=== PATIENT | female | born 1955 | race Caucasian/White ===

== ENCOUNTER 2021-10-16 08:35 | Inpatient (IN) | payer OTHER, MEDICAID ==
[~2021-10-16] VITALS: Ht 167.6 cm; Wt 53.5 kg
[2021-10-16 08:40] VITALS: BP_SYST 103
[2021-10-16] MEDS ORDERED: ALBUTEROL SULFATE 0.083% 2.5 MG/3 ML VIAL.NEB INH ONE ×2 (08:49→09:00)
[2021-10-16] MEDS ORDERED: IPRATROPIUM/ALBUTEROL SULFATE 3 ML AMPUL.NEB (DUONEB) ONE (08:52)
[2021-10-16] MEDS ORDERED: IPRATROPIUM BROM 0.5 MG/2.5 ML VIAL.NEB (ATROVENT) INH ONE (09:00)
[2021-10-16 09:16] LABS: BASOPHILS # (AUTO) 0.1 K/uL (0.0-0.2); BASOPHILS % (AUTO) 0.5 % (0.0-2.0); EOSINOPHILS % (AUTO) 0.1 % (0.0-4.0); HEMATOCRIT 28.2 % (36-48); HEMOGLOBIN 9.5 g/dL (12.0-16.0); LYMPHOCYTES % (AUTO) 6.4 % (20.5-51.5); MEAN CORPUSCULAR HEMOGLOBIN 29 pg (27-31); MEAN CORPUSCULAR HGB CONC 34 % (32-36); MEAN CORPUSCULAR VOLUME 87 fL (79.0-98.0); MONOCYTES # (AUTO) 2.2 K/uL (0.0-1.0); MONOCYTES % (AUTO) 13.7 % (1.7-9.3); NEUTROPHILS # (AUTO) 12.9 K/uL (1.8-7.7); PLATELET COUNT (AUTO) 443 K/uL (130-430); RED BLOOD CELL COUNT(AUTO) 3.26 MIL/uL (4.2-6.2); RED CELL DISTRIBUTION WIDTH 15.7 % (9.0-15.0); WHITE BLOOD COUNT (AUTO) 16.3 K/uL (4.8-10.8)
[2021-10-16 09:33] LABS: ANION GAP 12 (5-15); CALCIUM 8.1 mg/dL (8.4-11.0); CHLORIDE 94 mmol/L (98-107); CREATININE 1.54 mg/dL (0.55-1.30); GLUCOSE 258 mg/dL (70-99); POTASSIUM 5.2 mmol/L (3.5-5.1); SODIUM SERUM 129 mmol/L (136-145); UREA NITROGEN, BLOOD 60 mg/dL (8-21)
[2021-10-16 09:42] LABS: ALANINE AMINOTRANSFERASE 84 U/L (12-78); ALBUMIN 1.9 g/dL (3.4-4.8); ASPARTATE AMINOTRANSFERASE 72 U/L (10-37); TOTAL BILIRUBIN 0.7 mg/dL (0.0-1.0)
[2021-10-16 09:43] LABS: GFR AFRICAN AMERICAN 44 mL/min (>90)
[2021-10-16 09:52] LABS: NEUTROPHILS % (AUTO) 79.3 % (40.0-70.0)
[2021-10-16] MEDS ORDERED: NACL 0.9% 2,000 ML IV ONE (10:30)
[2021-10-16] MEDS ORDERED: METHYLPREDNISOLONE SOD SUCC 40 MG/ML VIAL IVP ONE (13:30)
[2021-10-16] MEDS ORDERED: METF-518 PO (14:10)
[2021-10-16] MEDS ORDERED: LISI-209 PO (14:10)
[2021-10-16] MEDS ORDERED: LEVO112T2 PO (14:10)
[2021-10-16] MEDS ORDERED: MULT-1089 PO (14:10)
[2021-10-16] MEDS ORDERED: QUET300T2 PO (14:10)
[2021-10-16] MEDS ORDERED: LIP10 PO (14:10)
[2021-10-16] MEDS ORDERED: AMLO5TAB4 PO (14:10)
[2021-10-16] MEDS ORDERED: LACT10SO6 PO (14:10)
[2021-10-16] MEDS ORDERED: DEPS125 PO (14:10)
[2021-10-16] MEDS ORDERED: XALEYE OP (14:10)
[2021-10-16] MEDS ORDERED: PIPERACILLIN/TAZO 3.375/DEX-IS 50 ML IV ONE (14:15)
[2021-10-16] MEDS: NACL 0.9% 1,000 ML IV SCH (14:56)
[2021-10-16 15:00] VITALS: BP_SYST 97
[2021-10-16 15:30] VITALS: BP_SYST 97
[2021-10-16] MEDS: LevALBUTEROL HCL 1.25 MG/0.5 ML *CONC.* VIAL.NEB (XOPENEX CONC.) INH SCH ×3 (15:49→23:40)
[2021-10-16 16:00] VITALS: BP_SYST 103
[2021-10-16] MEDS: LACTULOSE 20 GM/30 ML UDC PO SCH ×2 (16:18→20:42)
[2021-10-16 16:55] VITALS: BP_SYST 103
[2021-10-16] MEDS: METHYLPREDNISOLONE SOD SUCC 40 MG/ML VIAL IVP SCH (18:03)
[2021-10-16 20:00] VITALS: BP_SYST 105
[2021-10-16] MEDS: QUEtiapine FUMARATE 100 MG TABLET PO SCH (20:18)
[2021-10-16] MEDS: METOPROLOL TARTRATE 25 MG TABLET PO SCH (20:24)
[2021-10-16] MEDS: DIVALPROEX SODIUM 250 MG TABLET(DEPAKOTE) PO SCH (20:29)
[2021-10-16] MEDS: ATORVASTATIN 10 MG TABLET PO SCH (20:29)
[2021-10-16] MEDS: ENOXAPARIN SODIUM 30 MG/0.3 ML SYRINGE SUBCUT SCH (20:30)
[2021-10-16] MEDS: INSULIN REGULAR, HUMAN 100 UNITS/ML, 10 ML VIAL (humuLIN R) SUBCUT PRN (20:31)
[2021-10-16] MEDS: LATANOPROST 2.5 ML DROPS (XALATAN) OP SCH (20:43)
[2021-10-16] MEDS: PIPERACILLIN/TAZO 3.375/DEX-IS 50 ML IV SCH (21:00)
[2021-10-16] MEDS: AMIODARONE HCL 200 MG TABLET PO SCH (21:11)
[2021-10-17] MEDS: METHYLPREDNISOLONE SOD SUCC 40 MG/ML VIAL IVP SCH ×5 (00:09→23:43)
[2021-10-17 00:37] VITALS: BP_SYST 156
[2021-10-17] MEDS: PIPERACILLIN/TAZO 3.375/DEX-IS 50 ML IV SCH ×4 (02:57→21:11)
[2021-10-17] MEDS: NACL 0.9% 1,000 ML IV SCH ×2 (02:57→17:12)
[2021-10-17] MEDS: LevALBUTEROL HCL 1.25 MG/0.5 ML *CONC.* VIAL.NEB (XOPENEX CONC.) INH SCH ×4 (03:35→20:40)
[2021-10-17] MEDS: INSULIN REGULAR, HUMAN 100 UNITS/ML, 10 ML VIAL (humuLIN R) SUBCUT PRN ×3 (05:54→21:22)
[2021-10-17] MEDS: LEVOTHYROXINE SODIUM 0.112 MG TABLET PO SCH (06:11)
[2021-10-17 06:52] LABS: BASOPHILS % (AUTO) 0.1 % (0.0-2.0); HEMATOCRIT 25.7 % (36-48); HEMOGLOBIN 8.6 g/dL (12.0-16.0); LYMPHOCYTES # (AUTO) 0.9 K/uL (1.0-5.5); LYMPHOCYTES % (AUTO) 7.5 % (20.5-51.5); MEAN CORPUSCULAR HEMOGLOBIN 29 pg (27-31); MEAN CORPUSCULAR HGB CONC 34 % (32-36); MEAN CORPUSCULAR VOLUME 86 fL (79.0-98.0); MONOCYTES # (AUTO) 0.7 K/uL (0.0-1.0); NEUTROPHILS # (AUTO) 10.3 K/uL (1.8-7.7); NEUTROPHILS % (AUTO) 86.4 % (40.0-70.0); PLATELET COUNT (AUTO) 358 K/uL (130-430); RED BLOOD CELL COUNT(AUTO) 2.98 MIL/uL (4.2-6.2); RED CELL DISTRIBUTION WIDTH 15.3 % (9.0-15.0); WHITE BLOOD COUNT (AUTO) 11.9 K/uL (4.8-10.8)
[2021-10-17 07:40] LABS: CALCIUM 7.5 mg/dL (8.4-11.0); CREATININE 1.11 mg/dL (0.55-1.30); POTASSIUM 4.2 mmol/L (3.5-5.1)
[2021-10-17 08:00] VITALS: BP_SYST 100
[2021-10-17 08:20] LABS: TOTAL IRON BIND. CAPACITY 170 ug/dL (250-450)
[2021-10-17] MEDS: AMIODARONE HCL 200 MG TABLET PO SCH ×2 (08:32→21:02)
[2021-10-17] MEDS: LACTULOSE 20 GM/30 ML UDC PO SCH ×3 (08:32→22:13)
[2021-10-17] MEDS: DIVALPROEX SODIUM 250 MG TABLET(DEPAKOTE) PO SCH ×2 (08:32→21:11)
[2021-10-17] MEDS: METOPROLOL TARTRATE 25 MG TABLET PO SCH ×2 (08:33→21:11)
[2021-10-17] MEDS: MULTIVITAMINS TAB 1 TABLET PO SCH (08:33)
[2021-10-17 10:31] LABS: FREE T4 (FREE THYROXINE) 0.8 ng/dl (0.8-1.5); THYROID STIMULATING HORMONE 0.64 uIu/mL (0.36-3.74)
[2021-10-17 11:53] VITALS: BP_SYST 117
[2021-10-17] MEDS ORDERED: AMIODARONE HCL 200 MG TABLET PO ONE (13:30)
[2021-10-17] MEDS: SOD FERRIC GLUC COMPLEX/SUC 125 MG in NS 100 ML IV SCH (14:00)
[2021-10-17] MEDS ORDERED: ALPRAZolam 0.25 MG TABLET PO PRN (14:00)
[2021-10-17 15:00] VITALS: BP_SYST 91
[2021-10-17 20:00] VITALS: BP_SYST 106
[2021-10-17] MEDS: ATORVASTATIN 10 MG TABLET PO SCH (21:11)
[2021-10-17] MEDS: QUEtiapine FUMARATE 100 MG TABLET PO SCH (21:12)
[2021-10-17] MEDS: ENOXAPARIN SODIUM 30 MG/0.3 ML SYRINGE SUBCUT SCH (21:12)
[2021-10-17] MEDS: LATANOPROST 2.5 ML DROPS (XALATAN) OP SCH (21:22)
[2021-10-18] VITALS (14 sets, daily range): BP systolic 53–187
[2021-10-18] MEDS: LevALBUTEROL HCL 1.25 MG/0.5 ML *CONC.* VIAL.NEB (XOPENEX CONC.) INH SCH ×6 (00:25→23:26)
[2021-10-18] MEDS: NACL 0.9% 1,000 ML IV SCH ×2 (02:28→19:20)
[2021-10-18] MEDS: PIPERACILLIN/TAZO 3.375/DEX-IS 50 ML IV SCH ×4 (03:16→21:00)
[2021-10-18] MEDS: METHYLPREDNISOLONE SOD SUCC 40 MG/ML VIAL IVP SCH ×3 (05:20→17:33)
[2021-10-18] MEDS: INSULIN REGULAR, HUMAN 100 UNITS/ML, 10 ML VIAL (humuLIN R) SUBCUT PRN (05:50)
[2021-10-18] MEDS: LEVOTHYROXINE SODIUM 0.112 MG TABLET PO SCH (06:00)
[2021-10-18 07:07] LABS: FOLATE (FOLIC ACID) 12.1 ng/mL (>3.0)
[2021-10-18 07:57] LABS: BASOPHILS % (AUTO) 0.2 % (0.0-2.0); HEMATOCRIT 26.8 % (36-48); HEMOGLOBIN 8.9 g/dL (12.0-16.0); LYMPHOCYTES # (AUTO) 0.9 K/uL (1.0-5.5); MEAN CORPUSCULAR HEMOGLOBIN 29 pg (27-31); MEAN CORPUSCULAR HGB CONC 33 % (32-36); MEAN CORPUSCULAR VOLUME 87 fL (79.0-98.0); MONOCYTES # (AUTO) 0.9 K/uL (0.0-1.0); MONOCYTES % (AUTO) 6.3 % (1.7-9.3); NEUTROPHILS % (AUTO) 87.5 % (40.0-70.0); PLATELET COUNT (AUTO) 414 K/uL (130-430); RED BLOOD CELL COUNT(AUTO) 3.08 MIL/uL (4.2-6.2); RED CELL DISTRIBUTION WIDTH 15.5 % (9.0-15.0); WHITE BLOOD COUNT (AUTO) 14.9 K/uL (4.8-10.8)
[2021-10-18 08:02] LABS: CALCIUM 7.6 mg/dL (8.4-11.0); CREATININE 1.32 mg/dL (0.55-1.30); POTASSIUM 4.3 mmol/L (3.5-5.1)
[2021-10-18 08:24] LABS: ALBUMIN 1.7 g/dL (3.4-4.8); THYROID STIMULATING HORMONE 1.01 uIu/mL (0.36-3.74); TOTAL BILIRUBIN 0.3 mg/dL (0.0-1.0)
[2021-10-18] MEDS ORDERED: FUROSEMIDE 40 MG/4 ML VIAL IVP ONE (09:00)
[2021-10-18] MEDS: METOPROLOL TARTRATE 25 MG TABLET PO SCH ×2 (09:14→21:00)
[2021-10-18] MEDS: MULTIVITAMINS TAB 1 TABLET PO SCH (09:14)
[2021-10-18] MEDS: LACTULOSE 20 GM/30 ML UDC PO SCH ×3 (09:15→21:00)
[2021-10-18] MEDS: DIVALPROEX SODIUM 250 MG TABLET(DEPAKOTE) PO SCH ×2 (09:15→21:00)
[2021-10-18] MEDS: AMIODARONE HCL 200 MG TABLET PO SCH ×2 (09:15→21:00)
[2021-10-18] MEDS: SOD FERRIC GLUC COMPLEX/SUC 125 MG in NS 100 ML IV SCH (14:00)
[2021-10-18] MEDS ORDERED: NOREPINEPHRINE 4 MG/4 ML VIAL IV ONE ×2 (14:29→18:31)
[2021-10-18] MEDS ORDERED: DEXTROSE 50% JECT 50 ML DISP.SYRIN ONE (16:30)
[2021-10-18] MEDS ORDERED: DEXMEDETOMIDINE HCL 400 MCG in NS 96 ML IV PRN ×2 (16:45→17:15)
[2021-10-18] MEDS: ENOXAPARIN SODIUM 30 MG/0.3 ML SYRINGE SUBCUT SCH (21:00)
[2021-10-18] MEDS ORDERED: ALBUMIN HUMAN 25% 100 ML IV ONE ×2 (21:00→22:15)
[2021-10-18] MEDS: QUEtiapine FUMARATE 100 MG TABLET PO SCH (21:00)
[2021-10-18] MEDS: LATANOPROST 2.5 ML DROPS (XALATAN) OP SCH (21:00)
[2021-10-18] MEDS: FUROSEMIDE 100 MG in D5W 90 ML IV SCH (21:00)
[2021-10-18] MEDS: D5/0.45 NS 1,000 ML IV SCH (21:00)
[2021-10-18] MEDS ORDERED: AMIODARONE HCL 150 MG in D5W 100 ML IV ONE (21:00)
[2021-10-18] MEDS: ATORVASTATIN 10 MG TABLET PO SCH (21:00)
[2021-10-18] MEDS ORDERED: AMIODARONE HCL 450 MG/9 ML VIAL IV ONE (21:06)
[2021-10-18] MEDS ORDERED: AMIODARONE HCL IV ONE (21:45)
[2021-10-18] MEDS ORDERED: D5W IV ONE (21:45)
[2021-10-18] MEDS ORDERED: SODIUM BICARBONATE 8.4% JECT 50 MEQ/50 ML SYRINGE IVP ONE (23:45)
[2021-10-19] VITALS (28 sets, daily range): BP systolic 89–166
[2021-10-19] MEDS ORDERED: AMIODARONE HCL 450 MG/9 ML VIAL IV ONE (00:26)
[2021-10-19] MEDS ORDERED: ALBUMIN HUMAN 25% 100 ML IV ONE (02:26)
[2021-10-19] MEDS: PIPERACILLIN/TAZO 3.375/DEX-IS 50 ML IV SCH ×4 (03:00→21:55)
[2021-10-19] MEDS: LevALBUTEROL HCL 1.25 MG/0.5 ML *CONC.* VIAL.NEB (XOPENEX CONC.) INH SCH ×6 (03:00→22:48)
[2021-10-19] MEDS: NOREPINEPHRINE BITARTRATE 32 MG in NS 218 ML IV PRN (04:30)
[2021-10-19] MEDS: D5/0.45 NS 1,000 ML IV SCH ×2 (05:00→12:29)
[2021-10-19] MEDS: METHYLPREDNISOLONE SOD SUCC 40 MG/ML VIAL IVP SCH ×3 (06:00→12:00)
[2021-10-19 06:25] LABS: CALCIUM 8.6 mg/dL (8.4-11.0); CREATININE 2.06 mg/dL (0.55-1.30)
[2021-10-19] MEDS: LEVOTHYROXINE SODIUM 0.112 MG TABLET PO SCH (07:00)
[2021-10-19 07:17] LABS: POTASSIUM 5.6 mmol/L (3.5-5.1)
[2021-10-19 07:33] LABS: HEMOGLOBIN 11.5 g/dL (12.0-16.0); MEAN CORPUSCULAR HEMOGLOBIN 29 pg (27-31); MEAN CORPUSCULAR HGB CONC 31 % (32-36); MEAN CORPUSCULAR VOLUME 92 fL (79.0-98.0); PLATELET COUNT (AUTO) 472 K/uL (130-430); RED BLOOD CELL COUNT(AUTO) 4.03 MIL/uL (4.2-6.2); RED CELL DISTRIBUTION WIDTH 16.8 % (9.0-15.0); WHITE BLOOD COUNT (AUTO) 25.1 K/uL (4.8-10.8)
[2021-10-19] MEDS ORDERED: DEXMEDETOMIDINE HCL 200 MCG/2 ML VIAL IV ONE (07:57)
[2021-10-19] MEDS: AMIODARONE HCL 450 MG in D5W 241 ML IV SCH (08:27)
[2021-10-19] MEDS: MULTIVITAMINS TAB 1 TABLET PO SCH (09:00)
[2021-10-19] MEDS: DIVALPROEX SODIUM 250 MG TABLET(DEPAKOTE) PO SCH ×2 (09:00→21:54)
[2021-10-19] MEDS: LACTULOSE 20 GM/30 ML UDC PO SCH ×3 (09:00→21:52)
[2021-10-19] MEDS ORDERED: SODIUM BICARBONATE 8.4% JECT 50 MEQ/50 ML SYRINGE ONE (09:00)
[2021-10-19] MEDS: METOPROLOL TARTRATE 25 MG TABLET PO SCH ×2 (09:00→21:53)
[2021-10-19] MEDS ORDERED: NOREPINEPHRINE 4 MG/4 ML VIAL IV ONE ×2 (09:12→09:35)
[2021-10-19] MEDS ORDERED: PROPOFOL DRIP 100 ML IV ONE (09:12)
[2021-10-19] MEDS: NACL 0.9% 1,000 ML IV SCH ×2 (10:00→22:00)
[2021-10-19] MEDS ORDERED: ETOMIDATE 20 MG/ 10 ML VIAL (AMIDATE) IVP ONE (10:15)
[2021-10-19] MEDS ORDERED: ETOMIDATE 20 MG/ 10 ML VIAL (AMIDATE) ONE (11:13)
[2021-10-19] MEDS ORDERED: ROCURONIUM BROMIDE 10 MG/ML (ZEMURON) ONE (11:13)
[2021-10-19 12:14] LABS: BAND % (MANUAL) 2 % (0-6)
[2021-10-19 12:15] LABS: ATYPICAL LYMPHOCYTES % 1 % (0-0); BASOPHILS % (MANUAL) 0 % (0-2); EOSINOPHILS % (MANUAL) 0 % (0-7); LYMPHOCYTES % (MANUAL) 7 % (20-46); METAMYELOCYTES % 1 % (0-0); MONOCYTES % (MANUAL) 14 % (0-11)
[2021-10-19] MEDS: SODIUM BICARBONATE 8.4% JECT 150 MEQ in D5W 1,000 ML IVP SCH ×2 (12:25→22:30)
[2021-10-19] MEDS ORDERED: NS 500 ML IV ONE (13:30)
[2021-10-19] MEDS: SOD FERRIC GLUC COMPLEX/SUC 125 MG in NS 100 ML IV SCH (14:00)
[2021-10-19] MEDS: AZITHROMYCIN 500 MG in NS 250 ML IV SCH (15:00)
[2021-10-19] MEDS: FUROSEMIDE 100 MG in D5W 90 ML IV SCH (17:25)
[2021-10-19] MEDS: INSULIN REGULAR, HUMAN 100 UNITS/ML, 10 ML VIAL (humuLIN R) SUBCUT PRN ×2 (17:26→21:52)
[2021-10-19] MEDS: ACETYLCYSTEINE 20% 4 ML VIAL (RT) INH SCH ×2 (19:39→22:48)
[2021-10-19] MEDS: LATANOPROST 2.5 ML DROPS (XALATAN) OP SCH (21:00)
[2021-10-19] MEDS ORDERED: PROPOFOL DRIP 100 ML IV PRN (21:45)
[2021-10-19] MEDS: ATORVASTATIN 10 MG TABLET PO SCH (21:54)
[2021-10-19] MEDS: QUEtiapine FUMARATE 100 MG TABLET PO SCH (21:54)
[2021-10-19] MEDS: ENOXAPARIN SODIUM 30 MG/0.3 ML SYRINGE SUBCUT SCH (21:57)
[2021-10-19] MEDS: PROPOFOL DRIP 100 ML IV PRN (22:11)
[2021-10-20] VITALS (31 sets, daily range): BP systolic 74–166
[2021-10-20] MEDS ORDERED: AMIODARONE HCL 450 MG/9 ML VIAL IV ONE (01:57)
[2021-10-20] MEDS: AMIODARONE HCL 450 MG in D5W 241 ML IV SCH (02:04)
[2021-10-20] MEDS: PROPOFOL DRIP 100 ML IV PRN (03:07)
[2021-10-20] MEDS: LevALBUTEROL HCL 1.25 MG/0.5 ML *CONC.* VIAL.NEB (XOPENEX CONC.) INH SCH ×6 (03:53→23:30)
[2021-10-20] MEDS: ACETYLCYSTEINE 20% 4 ML VIAL (RT) INH SCH ×6 (03:53→23:30)
[2021-10-20] MEDS: PIPERACILLIN/TAZO 3.375/DEX-IS 50 ML IV SCH ×4 (03:57→20:29)
[2021-10-20 05:53] LABS: BASOPHILS # (AUTO) 0.1 K/uL (0.0-0.2); BASOPHILS % (AUTO) 0.3 % (0.0-2.0); EOSINOPHILS # (AUTO) 0.4 K/uL (0.0-0.4); EOSINOPHILS % (AUTO) 1.5 % (0.0-4.0); HEMATOCRIT 36.5 % (36-48); HEMOGLOBIN 11.6 g/dL (12.0-16.0); LYMPHOCYTES # (AUTO) 1.9 K/uL (1.0-5.5); LYMPHOCYTES % (AUTO) 7.3 % (20.5-51.5); MEAN CORPUSCULAR HEMOGLOBIN 29 pg (27-31); MEAN CORPUSCULAR HGB CONC 32 % (32-36); MEAN CORPUSCULAR VOLUME 90 fL (79.0-98.0); MONOCYTES # (AUTO) 2.3 K/uL (0.0-1.0); MONOCYTES % (AUTO) 9.1 % (1.7-9.3); NEUTROPHILS % (AUTO) 81.8 % (40.0-70.0); PLATELET COUNT (AUTO) 387 K/uL (130-430); RED BLOOD CELL COUNT(AUTO) 4.06 MIL/uL (4.2-6.2); RED CELL DISTRIBUTION WIDTH 16.8 % (9.0-15.0); WHITE BLOOD COUNT (AUTO) 25.7 K/uL (4.8-10.8)
[2021-10-20 06:30] LABS: CREATININE 3.32 mg/dL (0.55-1.30); POTASSIUM 5.7 mmol/L (3.5-5.1); TOTAL BILIRUBIN 1.1 mg/dL (0.0-1.0)
[2021-10-20] MEDS ORDERED: NOREPINEPHRINE 4 MG/4 ML VIAL IV ONE (07:05)
[2021-10-20 07:26] LABS: CALCIUM 7.2 mg/dL (8.4-11.0)
[2021-10-20] MEDS ORDERED: SODIUM BICARBONATE 8.4% JECT 50 MEQ/50 ML SYRINGE IVP ONE (08:15)
[2021-10-20] MEDS ORDERED: SODIUM POLYSTYRENE SULFONATE 15 GM/60 ML UDBTL NG ONE (08:30)
[2021-10-20] MEDS: METOPROLOL TARTRATE 25 MG TABLET PO SCH ×2 (09:00→20:33)
[2021-10-20] MEDS ORDERED: VASOPRESSIN 40 UNITS in NS 38 ML IV PRN (09:15)
[2021-10-20] MEDS: LACTULOSE 20 GM/30 ML UDC PO SCH ×4 (09:38→20:40)
[2021-10-20] MEDS: DIVALPROEX SODIUM 250 MG TABLET(DEPAKOTE) PO SCH ×2 (09:39→20:30)
[2021-10-20] MEDS: MULTIVITAMINS TAB 1 TABLET PO SCH (09:40)
[2021-10-20] MEDS: LEVOTHYROXINE SODIUM 0.112 MG TABLET PO SCH (09:42)
[2021-10-20] MEDS: NACL 0.9% 1,000 ML IV SCH (11:20)
[2021-10-20] MEDS: NOREPINEPHRINE BITARTRATE 32 MG in NS 218 ML IV PRN (11:27)
[2021-10-20] MEDS ORDERED: HEPARIN SODIUM,PORCINE 5,000 UNITS/ML VIAL MC ONE (12:00)
[2021-10-20] MEDS: HYDROCORTISONE SOD SUCC 100 MG/2 ML VIAL IVP SCH ×3 (12:08→23:29)
[2021-10-20] MEDS: INSULIN REGULAR, HUMAN 100 UNITS/ML, 10 ML VIAL (humuLIN R) SUBCUT PRN ×3 (12:11→23:34)
[2021-10-20] MEDS ORDERED: ALBUMIN HUMAN 25% 100 ML IV ONE ×2 (12:33→12:45)
[2021-10-20] MEDS: SOD FERRIC GLUC COMPLEX/SUC 125 MG in NS 100 ML IV SCH (14:00)
[2021-10-20] MEDS ORDERED: AMIODARONE HCL 200 MG TABLET GT ONE (14:00)
[2021-10-20] MEDS: AZITHROMYCIN 500 MG in NS 250 ML IV SCH (16:02)
[2021-10-20] MEDS: SODIUM BICARBONATE 8.4% JECT 150 MEQ in D5W 1,000 ML IVP SCH (16:05)
[2021-10-20 16:22] LABS: INR 2.9 (0.8-1.2)
[2021-10-20 16:27] LABS: CREATININE 2.98 mg/dL (0.55-1.30)
[2021-10-20 16:36] LABS: PROTHROMBIN TIME 28.7 SECS (9.5-12.5)
[2021-10-20 16:41] LABS: TOTAL IRON BIND. CAPACITY 108 ug/dL (250-450)
[2021-10-20 17:43] LABS: CALCIUM 7.2 mg/dL (8.4-11.0)
[2021-10-20] MEDS: ATORVASTATIN 10 MG TABLET PO SCH (20:31)
[2021-10-20] MEDS: QUEtiapine FUMARATE 100 MG TABLET PO SCH (20:33)
[2021-10-20] MEDS: ENOXAPARIN SODIUM 30 MG/0.3 ML SYRINGE SUBCUT SCH (20:39)
[2021-10-21] VITALS (34 sets, daily range): BP systolic 101–159
[2021-10-21] MEDS: NACL 0.9% 1,000 ML IV SCH ×3 (01:05→11:53)
[2021-10-21] MEDS: AMIODARONE HCL 200 MG TABLET GT SCH ×3 (01:06→20:50)
[2021-10-21] MEDS: LATANOPROST 2.5 ML DROPS (XALATAN) OP SCH ×2 (01:07→20:47)
[2021-10-21 01:10] LABS: BARBITURATE, URINE NEGATIVE (NEG <=200); BENZODIAZEPINE, URINE NEGATIVE (NEG <=150); CANNABINOID, URINE NEGATIVE (NEG <=50); COCAINE, URINE POSITIVE (NEG <=150); METHAMPHETAMINES SCREEN,URINE NEGATIVE (NEG <=500); OPIATE, URINE NEGATIVE (NEG <=100); PHENCYCLIDINE SCREEN,URINE NEGATIVE (NEG <=25); URINE AMPHETAMINE NEGATIVE (NEG <=500); URINE METHADONE NEGATIVE (NEG <=200); URINE OXYCODONE SCREEN NEGATIVE (NEG <=100); URINE PROPOXYPHENE SCREEN NEGATIVE (NEG <=300)
[2021-10-21 01:11] LABS: UR TRICYCLIC ANTIDEPRESSANTS POSITIVE (NEG <=300)
[2021-10-21] MEDS: ACETYLCYSTEINE 20% 4 ML VIAL (RT) INH SCH ×6 (03:19→22:46)
[2021-10-21] MEDS: LevALBUTEROL HCL 1.25 MG/0.5 ML *CONC.* VIAL.NEB (XOPENEX CONC.) INH SCH ×6 (03:20→22:47)
[2021-10-21] MEDS: PIPERACILLIN/TAZO 3.375/DEX-IS 50 ML IV SCH ×4 (03:39→20:46)
[2021-10-21] MEDS: LEVOTHYROXINE SODIUM 0.112 MG TABLET PO SCH (06:47)
[2021-10-21] MEDS: HYDROCORTISONE SOD SUCC 100 MG/2 ML VIAL IVP SCH ×3 (06:47→18:11)
[2021-10-21] MEDS: INSULIN REGULAR, HUMAN 100 UNITS/ML, 10 ML VIAL (humuLIN R) SUBCUT PRN ×3 (06:50→23:53)
[2021-10-21] MEDS ORDERED: PANTOPRAZOLE SODIUM 40 MG/VIAL (PROTONIX) IVP ONE (07:45)
[2021-10-21 07:49] LABS: HEMATOCRIT 25.3 % (36-48); HEMOGLOBIN 8.5 g/dL (12.0-16.0); MEAN CORPUSCULAR HEMOGLOBIN 29 pg (27-31); MEAN CORPUSCULAR HGB CONC 33 % (32-36); MEAN CORPUSCULAR VOLUME 86 fL (79.0-98.0); PLATELET COUNT (AUTO) 230 K/uL (130-430); RED BLOOD CELL COUNT(AUTO) 2.93 MIL/uL (4.2-6.2); RED CELL DISTRIBUTION WIDTH 15.6 % (9.0-15.0)
[2021-10-21] MEDS ORDERED: PANTOPRAZOLE SODIUM 40 MG/VIAL (PROTONIX) ONE (08:13)
[2021-10-21] MEDS: DIVALPROEX SODIUM 250 MG TABLET(DEPAKOTE) PO SCH ×2 (08:17→20:48)
[2021-10-21] MEDS: MULTIVITAMINS TAB 1 TABLET PO SCH (08:17)
[2021-10-21] MEDS: LACTULOSE 20 GM/30 ML UDC PO SCH ×3 (08:17→23:46)
[2021-10-21] MEDS: METOPROLOL TARTRATE 25 MG TABLET PO SCH ×2 (08:18→20:49)
[2021-10-21 08:26] LABS: ALBUMIN 1.9 g/dL (3.4-4.8); CREATININE 3.37 mg/dL (0.55-1.30)
[2021-10-21 08:39] LABS: POTASSIUM 2.4 mmol/L (3.5-5.1)
[2021-10-21 08:40] LABS: CALCIUM 6.9 mg/dL (8.4-11.0)
[2021-10-21] MEDS ORDERED: CALCIUM CHLORIDE 1 GM in NS 100 ML IV ONE (09:15)
[2021-10-21] MEDS: KCL 20 mEq in 100 mL (PREMIX) 100 ML IV SCH ×2 (10:34→11:45)
[2021-10-21] MEDS ORDERED: ALTEPLASE 2 MG VIAL MC ONE (13:00)
[2021-10-21 14:48] LABS: ATYPICAL LYMPHOCYTES % 3 % (0-0); BAND % (MANUAL) 10 % (0-6); CORRECTED WHITE BLOOD COUNT 20.8 K/uL (4.5-11.0); EOSINOPHILS % (MANUAL) 0 % (0-7); LYMPHOCYTES % (MANUAL) 2 % (20-46); MONOCYTES % (MANUAL) 6 % (0-11)
[2021-10-21 14:49] LABS: BASOPHILS % (MANUAL) 0 % (0-2); METAMYELOCYTES % 4 % (0-0); MYELOCYTES % 1 % (0-0)
[2021-10-21] MEDS: PROPOFOL DRIP 100 ML IV PRN (15:02)
[2021-10-21] MEDS: SOD FERRIC GLUC COMPLEX/SUC 125 MG in NS 100 ML IV SCH (15:05)
[2021-10-21] MEDS: AZITHROMYCIN 500 MG in NS 250 ML IV SCH (15:05)
[2021-10-21 19:14] LABS: CALCIUM 7.3 mg/dL (8.4-11.0); CREATININE 2.89 mg/dL (0.55-1.30); POTASSIUM 3.6 mmol/L (3.5-5.1); TOTAL BILIRUBIN 1.1 mg/dL (0.0-1.0)
[2021-10-21 19:15] LABS: ALBUMIN 1.7 g/dL (3.4-4.8)
[2021-10-21] MEDS: QUEtiapine FUMARATE 100 MG TABLET PO SCH (20:49)
[2021-10-21] MEDS: ENOXAPARIN SODIUM 30 MG/0.3 ML SYRINGE SUBCUT SCH (20:54)
[2021-10-21] MEDS ORDERED: AMIODARONE HCL 450 MG/9 ML VIAL IV ONE (22:57)
[2021-10-21] MEDS ORDERED: AMIODARONE HCL 450 MG in D5W 241 ML IV SCH (23:00)
[2021-10-22] VITALS (33 sets, daily range): BP systolic 95–151
[2021-10-22] MEDS: ACETYLCYSTEINE 20% 4 ML VIAL (RT) INH SCH ×6 (03:05→23:06)
[2021-10-22] MEDS: LevALBUTEROL HCL 1.25 MG/0.5 ML *CONC.* VIAL.NEB (XOPENEX CONC.) INH SCH ×6 (03:05→23:05)
[2021-10-22] MEDS: HYDROCORTISONE SOD SUCC 100 MG/2 ML VIAL IVP SCH ×5 (04:55→23:57)
[2021-10-22] MEDS: PIPERACILLIN/TAZO 3.375/DEX-IS 50 ML IV SCH ×4 (04:55→20:44)
[2021-10-22] MEDS: NACL 0.9% 1,000 ML IV SCH ×4 (04:56→20:45)
[2021-10-22 06:08] LABS: BASOPHILS # (AUTO) 0.1 K/uL (0.0-0.2); BASOPHILS % (AUTO) 0.2 % (0.0-2.0); HEMATOCRIT 26.6 % (36-48); HEMOGLOBIN 8.9 g/dL (12.0-16.0); LYMPHOCYTES # (AUTO) 1.1 K/uL (1.0-5.5); LYMPHOCYTES % (AUTO) 4.5 % (20.5-51.5); MEAN CORPUSCULAR HEMOGLOBIN 29 pg (27-31); MEAN CORPUSCULAR HGB CONC 33 % (32-36); MEAN CORPUSCULAR VOLUME 86 fL (79.0-98.0); MONOCYTES # (AUTO) 1.1 K/uL (0.0-1.0); MONOCYTES % (AUTO) 4.4 % (1.7-9.3); NEUTROPHILS # (AUTO) 22.5 K/uL (1.8-7.7); PLATELET COUNT (AUTO) 144 K/uL (130-430); RED BLOOD CELL COUNT(AUTO) 3.09 MIL/uL (4.2-6.2); RED CELL DISTRIBUTION WIDTH 15.3 % (9.0-15.0); WHITE BLOOD COUNT (AUTO) 24.8 K/uL (4.8-10.8)
[2021-10-22 06:33] LABS: ALBUMIN 1.4 g/dL (3.4-4.8); BILIRUBIN,DIRECT 0.1 mg/dL (0.0-0.3); CREATININE 3.33 mg/dL (0.55-1.30); POTASSIUM 5.5 mmol/L (3.5-5.1); TOTAL BILIRUBIN 0.9 mg/dL (0.0-1.0)
[2021-10-22] MEDS: LEVOTHYROXINE SODIUM 0.112 MG TABLET PO SCH (06:41)
[2021-10-22] MEDS: INSULIN REGULAR, HUMAN 100 UNITS/ML, 10 ML VIAL (humuLIN R) SUBCUT PRN ×3 (06:45→17:45)
[2021-10-22] MEDS ORDERED: PROPOFOL DRIP 100 ML IV ONE (07:03)
[2021-10-22] MEDS: PROPOFOL DRIP 100 ML IV PRN (07:12)
[2021-10-22 07:36] LABS: INR 1.7 (0.8-1.2); PROTHROMBIN TIME 17.1 SECS (9.5-12.5)
[2021-10-22 07:38] LABS: NEUTROPHILS % (AUTO) 90.9 % (40.0-70.0)
[2021-10-22 09:14] LABS: CALCIUM 6.2 mg/dL (8.4-11.0)
[2021-10-22 09:22] LABS: FERRITIN 9053 ng/mL (15-150)
[2021-10-22] MEDS: MULTIVITAMINS TAB 1 TABLET PO SCH (09:59)
[2021-10-22] MEDS: LACTULOSE 20 GM/30 ML UDC PO SCH ×3 (09:59→20:44)
[2021-10-22] MEDS: DIVALPROEX SODIUM 250 MG TABLET(DEPAKOTE) PO SCH ×2 (09:59→20:43)
[2021-10-22] MEDS: METOPROLOL TARTRATE 25 MG TABLET PO SCH ×2 (10:00→20:43)
[2021-10-22 10:07] LABS: ALPHA-1-ANTITRYPSIN, S 177 mg/dL (101-187)
[2021-10-22 10:07] LABS: HEPATITIS A AB, IgM Negative (Negative); HEPATITIS B CORE AB, IgM Negative (Negative); HEPATITIS B SURFACE AG Negative (Negative)
[2021-10-22] MEDS ORDERED: CALCIUM GLUCONATE 1 GM in NS 100 ML IV ONE (11:30)
[2021-10-22] MEDS: SOD FERRIC GLUC COMPLEX/SUC 125 MG in NS 100 ML IV SCH (14:10)
[2021-10-22] MEDS: AZITHROMYCIN 500 MG in NS 250 ML IV SCH (15:28)
[2021-10-22] MEDS: QUEtiapine FUMARATE 100 MG TABLET PO SCH (20:43)
[2021-10-22] MEDS: ENOXAPARIN SODIUM 30 MG/0.3 ML SYRINGE SUBCUT SCH (20:44)
[2021-10-22] MEDS: LATANOPROST 2.5 ML DROPS (XALATAN) OP SCH (20:45)
[2021-10-23] VITALS (30 sets, daily range): BP systolic 104–172
[2021-10-23] MEDS: PROPOFOL DRIP 100 ML IV PRN ×2 (00:20→19:10)
[2021-10-23] MEDS: INSULIN REGULAR, HUMAN 100 UNITS/ML, 10 ML VIAL (humuLIN R) SUBCUT PRN ×3 (00:38→18:38)
[2021-10-23] MEDS: PIPERACILLIN/TAZO 3.375/DEX-IS 50 ML IV SCH ×2 (02:49→08:55)
[2021-10-23] MEDS: ACETYLCYSTEINE 20% 4 ML VIAL (RT) INH SCH ×6 (03:12→23:15)
[2021-10-23] MEDS: LevALBUTEROL HCL 1.25 MG/0.5 ML *CONC.* VIAL.NEB (XOPENEX CONC.) INH SCH ×6 (03:12→23:15)
[2021-10-23] MEDS: NACL 0.9% 1,000 ML IV SCH ×2 (04:25→16:05)
[2021-10-23] MEDS: HYDROCORTISONE SOD SUCC 100 MG/2 ML VIAL IVP SCH ×3 (05:43→18:38)
[2021-10-23 06:37] LABS: BASOPHILS % (AUTO) 0.2 % (0.0-2.0); HEMATOCRIT 27.4 % (36-48); LYMPHOCYTES # (AUTO) 1.1 K/uL (1.0-5.5); LYMPHOCYTES % (AUTO) 4.5 % (20.5-51.5); MEAN CORPUSCULAR HEMOGLOBIN 29 pg (27-31); MEAN CORPUSCULAR HGB CONC 33 % (32-36); MEAN CORPUSCULAR VOLUME 88 fL (79.0-98.0); MONOCYTES # (AUTO) 1.6 K/uL (0.0-1.0); MONOCYTES % (AUTO) 6.3 % (1.7-9.3); NEUTROPHILS # (AUTO) 22.5 K/uL (1.8-7.7); PLATELET COUNT (AUTO) 98 K/uL (130-430); RED BLOOD CELL COUNT(AUTO) 3.12 MIL/uL (4.2-6.2); RED CELL DISTRIBUTION WIDTH 16.1 % (9.0-15.0); WHITE BLOOD COUNT (AUTO) 25.3 K/uL (4.8-10.8)
[2021-10-23 07:20] LABS: ALBUMIN 1.5 g/dL (3.4-4.8); CREATININE 4.18 mg/dL (0.55-1.30); TOTAL BILIRUBIN 0.9 mg/dL (0.0-1.0)
[2021-10-23 07:57] LABS: CALCIUM 6.8 mg/dL (8.4-11.0)
[2021-10-23] MEDS ORDERED: POTASSIUM CHLORIDE 20 MEQ/PKT PACKET PO ONE (08:30)
[2021-10-23] MEDS: LEVOTHYROXINE SODIUM 0.112 MG TABLET PO SCH (08:54)
[2021-10-23] MEDS: MULTIVITAMINS TAB 1 TABLET PO SCH (08:56)
[2021-10-23] MEDS: METOPROLOL TARTRATE 25 MG TABLET PO SCH ×2 (08:56→20:53)
[2021-10-23] MEDS: DIVALPROEX SODIUM 250 MG TABLET(DEPAKOTE) PO SCH ×2 (08:56→20:52)
[2021-10-23] MEDS: LACTULOSE 20 GM/30 ML UDC PO SCH ×3 (08:57→20:53)
[2021-10-23] MEDS ORDERED: POTASSIUM CHLORIDE 20 MEQ/PKT PACKET ONE (09:15)
[2021-10-23] MEDS: SOD FERRIC GLUC COMPLEX/SUC 125 MG in NS 100 ML IV SCH (14:00)
[2021-10-23] MEDS: MEROPENEM 500 MG in NS 50 ML IV SCH (16:06)
[2021-10-23] MEDS ORDERED: AMIODARONE HCL 450 MG in D5W 241 ML IV SCH (18:00)
[2021-10-23] MEDS: QUEtiapine FUMARATE 100 MG TABLET PO SCH (20:52)
[2021-10-23] MEDS: LATANOPROST 2.5 ML DROPS (XALATAN) OP SCH (20:53)
[2021-10-23] MEDS: ENOXAPARIN SODIUM 30 MG/0.3 ML SYRINGE SUBCUT SCH (20:53)
[2021-10-24] VITALS (28 sets, daily range): BP systolic 98–178
[2021-10-24] MEDS: MEROPENEM 500 MG in NS 50 ML IV SCH ×2 (02:38→16:10)
[2021-10-24] MEDS: ACETYLCYSTEINE 20% 4 ML VIAL (RT) INH SCH ×6 (03:15→22:20)
[2021-10-24] MEDS: LevALBUTEROL HCL 1.25 MG/0.5 ML *CONC.* VIAL.NEB (XOPENEX CONC.) INH SCH ×6 (03:15→22:20)
[2021-10-24] MEDS: HYDROCORTISONE SOD SUCC 100 MG/2 ML VIAL IVP SCH ×4 (05:27→18:18)
[2021-10-24 06:40] LABS: BASOPHILS # (AUTO) 0.1 K/uL (0.0-0.2); BASOPHILS % (AUTO) 0.3 % (0.0-2.0); HEMATOCRIT 27.5 % (36-48); HEMOGLOBIN 9.2 g/dL (12.0-16.0); LYMPHOCYTES # (AUTO) 1.1 K/uL (1.0-5.5); LYMPHOCYTES % (AUTO) 4.4 % (20.5-51.5); MEAN CORPUSCULAR HEMOGLOBIN 29 pg (27-31); MEAN CORPUSCULAR HGB CONC 34 % (32-36); MEAN CORPUSCULAR VOLUME 87 fL (79.0-98.0); MONOCYTES # (AUTO) 1.8 K/uL (0.0-1.0); MONOCYTES % (AUTO) 7.1 % (1.7-9.3); NEUTROPHILS # (AUTO) 21.8 K/uL (1.8-7.7); PLATELET COUNT (AUTO) 80 K/uL (130-430); RED BLOOD CELL COUNT(AUTO) 3.15 MIL/uL (4.2-6.2); RED CELL DISTRIBUTION WIDTH 16.1 % (9.0-15.0); WHITE BLOOD COUNT (AUTO) 24.7 K/uL (4.8-10.8)
[2021-10-24 06:42] LABS: INR 1.3 (0.8-1.2); PROTHROMBIN TIME 12.5 SECS (9.5-12.5)
[2021-10-24 08:08] LABS: ALBUMIN 1.5 g/dL (3.4-4.8); BILIRUBIN,DIRECT 0.4 mg/dL (0.0-0.3); CREATININE 3.41 mg/dL (0.55-1.30); POTASSIUM 3.5 mmol/L (3.5-5.1); TOTAL BILIRUBIN 0.8 mg/dL (0.0-1.0)
[2021-10-24 08:30] LABS: NEUTROPHILS % (AUTO) 88.2 % (40.0-70.0)
[2021-10-24] MEDS: LACTULOSE 20 GM/30 ML UDC PO SCH ×3 (09:13→20:38)
[2021-10-24] MEDS: METOPROLOL TARTRATE 25 MG TABLET PO SCH ×2 (09:13→20:40)
[2021-10-24] MEDS: DIVALPROEX SODIUM 250 MG TABLET(DEPAKOTE) PO SCH ×2 (09:14→20:38)
[2021-10-24] MEDS: LEVOTHYROXINE SODIUM 0.112 MG TABLET PO SCH (09:14)
[2021-10-24] MEDS: MULTIVITAMINS TAB 1 TABLET PO SCH (09:14)
[2021-10-24] MEDS: PROPOFOL DRIP 100 ML IV PRN (10:40)
[2021-10-24] MEDS: NACL 0.9% 1,000 ML IV SCH (11:35)
[2021-10-24] MEDS: INSULIN REGULAR, HUMAN 100 UNITS/ML, 10 ML VIAL (humuLIN R) SUBCUT PRN ×2 (12:16→17:34)
[2021-10-24] MEDS: SOD FERRIC GLUC COMPLEX/SUC 125 MG in NS 100 ML IV SCH (14:00)
[2021-10-24] MEDS: LATANOPROST 2.5 ML DROPS (XALATAN) OP SCH (20:35)
[2021-10-24] MEDS: QUEtiapine FUMARATE 100 MG TABLET PO SCH (20:38)
[2021-10-24] MEDS: ENOXAPARIN SODIUM 30 MG/0.3 ML SYRINGE SUBCUT SCH (20:38)
[2021-10-25] VITALS (37 sets, daily range): BP systolic 108–200
[2021-10-25] MEDS: HYDROCORTISONE SOD SUCC 100 MG/2 ML VIAL IVP SCH ×4 (01:00→17:08)
[2021-10-25] MEDS: ACETYLCYSTEINE 20% 4 ML VIAL (RT) INH SCH ×6 (02:35→22:05)
[2021-10-25] MEDS: LevALBUTEROL HCL 1.25 MG/0.5 ML *CONC.* VIAL.NEB (XOPENEX CONC.) INH SCH ×6 (02:35→22:05)
[2021-10-25] MEDS: MEROPENEM 500 MG in NS 50 ML IV SCH ×2 (03:00→15:40)
[2021-10-25] MEDS: LEVOTHYROXINE SODIUM 0.112 MG TABLET PO SCH (06:48)
[2021-10-25 06:54] LABS: BASOPHILS # (AUTO) 0.1 K/uL (0.0-0.2); BASOPHILS % (AUTO) 0.3 % (0.0-2.0); EOSINOPHILS % (AUTO) 0.1 % (0.0-4.0); HEMATOCRIT 27.6 % (36-48); HEMOGLOBIN 9.2 g/dL (12.0-16.0); LYMPHOCYTES # (AUTO) 1.8 K/uL (1.0-5.5); LYMPHOCYTES % (AUTO) 6.8 % (20.5-51.5); MEAN CORPUSCULAR HEMOGLOBIN 29 pg (27-31); MEAN CORPUSCULAR HGB CONC 33 % (32-36); MEAN CORPUSCULAR VOLUME 88 fL (79.0-98.0); MONOCYTES # (AUTO) 2.1 K/uL (0.0-1.0); MONOCYTES % (AUTO) 7.8 % (1.7-9.3); NEUTROPHILS # (AUTO) 22.6 K/uL (1.8-7.7); PLATELET COUNT (AUTO) 70 K/uL (130-430); RED BLOOD CELL COUNT(AUTO) 3.13 MIL/uL (4.2-6.2); RED CELL DISTRIBUTION WIDTH 16.4 % (9.0-15.0); WHITE BLOOD COUNT (AUTO) 26.6 K/uL (4.8-10.8)
[2021-10-25] MEDS: NACL 0.9% 1,000 ML IV SCH (07:35)
[2021-10-25] MEDS: PROPOFOL DRIP 100 ML IV PRN ×2 (07:57→14:07)
[2021-10-25] MEDS: hydrALAZINE HCL 20 MG/ML VIAL IVP PRN (08:08)
[2021-10-25] MEDS: LACTULOSE 20 GM/30 ML UDC PO SCH ×3 (08:08→22:04)
[2021-10-25] MEDS: MULTIVITAMINS TAB 1 TABLET PO SCH (08:08)
[2021-10-25] MEDS: DIVALPROEX SODIUM 250 MG TABLET(DEPAKOTE) PO SCH ×2 (08:08→22:07)
[2021-10-25] MEDS: METOPROLOL TARTRATE 25 MG TABLET PO SCH ×2 (08:09→22:07)
[2021-10-25 08:16] LABS: ALBUMIN 1.3 g/dL (3.4-4.8); BILIRUBIN,DIRECT 0.3 mg/dL (0.0-0.3); CREATININE 3.85 mg/dL (0.55-1.30); POTASSIUM 3.1 mmol/L (3.5-5.1); TOTAL BILIRUBIN 0.5 mg/dL (0.0-1.0)
[2021-10-25 08:35] LABS: CALCIUM 6.5 mg/dL (8.4-11.0)
[2021-10-25] MEDS: AMIODARONE HCL 200 MG TABLET PO SCH ×2 (09:15→22:05)
[2021-10-25] MEDS ORDERED: POTASSIUM CHLORIDE 20 MEQ TAB.PRT.SR NG ONE (10:00)
[2021-10-25] MEDS ORDERED: CALCIUM GLUCONATE 1 GM in NS 100 ML IV ONE (11:00)
[2021-10-25 12:06] LABS: ANTI-SMOOTH MUSCLE AB 4 Units (0-19)
[2021-10-25] MEDS: LATANOPROST 2.5 ML DROPS (XALATAN) OP SCH (21:00)
[2021-10-25] MEDS: QUEtiapine FUMARATE 100 MG TABLET PO SCH (22:06)
[2021-10-26] VITALS (45 sets, daily range): BP systolic 88–138
[2021-10-26] MEDS: HYDROCORTISONE SOD SUCC 100 MG/2 ML VIAL IVP SCH ×4 (00:04→18:02)
[2021-10-26] MEDS: PROPOFOL DRIP 100 ML IV PRN ×3 (00:09→18:04)
[2021-10-26] MEDS: LevALBUTEROL HCL 1.25 MG/0.5 ML *CONC.* VIAL.NEB (XOPENEX CONC.) INH SCH ×6 (03:30→22:24)
[2021-10-26] MEDS: ACETYLCYSTEINE 20% 4 ML VIAL (RT) INH SCH ×6 (03:31→22:23)
[2021-10-26] MEDS: NACL 0.9% 1,000 ML IV SCH (04:07)
[2021-10-26] MEDS: MEROPENEM 500 MG in NS 50 ML IV SCH ×2 (04:07→16:01)
[2021-10-26 06:00] LABS: HEMATOCRIT 25.6 % (36-48); HEMOGLOBIN 8.4 g/dL (12.0-16.0); MEAN CORPUSCULAR HEMOGLOBIN 29 pg (27-31); MEAN CORPUSCULAR HGB CONC 33 % (32-36); MEAN CORPUSCULAR VOLUME 88 fL (79.0-98.0); PLATELET COUNT (AUTO) 78 K/uL (130-430); RED BLOOD CELL COUNT(AUTO) 2.92 MIL/uL (4.2-6.2); RED CELL DISTRIBUTION WIDTH 16.3 % (9.0-15.0); WHITE BLOOD COUNT (AUTO) 26.1 K/uL (4.8-10.8)
[2021-10-26 06:25] LABS: ALBUMIN 1.2 g/dL (3.4-4.8); CREATININE 4.52 mg/dL (0.55-1.30); PHOSPHORUS 6.6 mg/dL (2.7-4.5); POTASSIUM 3.6 mmol/L (3.5-5.1); TOTAL BILIRUBIN 0.4 mg/dL (0.0-1.0)
[2021-10-26 06:53] LABS: CALCIUM 6.9 mg/dL (8.4-11.0)
[2021-10-26] MEDS: DIVALPROEX SODIUM 250 MG TABLET(DEPAKOTE) PO SCH ×2 (09:48→22:23)
[2021-10-26] MEDS: LACTULOSE 20 GM/30 ML UDC PO SCH ×3 (09:48→22:22)
[2021-10-26] MEDS: LEVOTHYROXINE SODIUM 0.112 MG TABLET PO SCH (09:48)
[2021-10-26] MEDS: MULTIVITAMINS TAB 1 TABLET PO SCH (09:49)
[2021-10-26] MEDS: METOPROLOL TARTRATE 25 MG TABLET PO SCH ×2 (10:05→22:23)
[2021-10-26] MEDS: AMIODARONE HCL 200 MG TABLET PO SCH (10:06)
[2021-10-26 11:06] LABS: LIVER-KIDNEY MICROSOMAL AB 0.8 Units (0.0-20.0)
[2021-10-26] MEDS ORDERED: ALBUMIN HUMAN 25% 50 ML IV ONE ×2 (11:39→11:43)
[2021-10-26 14:35] LABS: BAND % (MANUAL) 4 % (0-6); BASOPHILS % (MANUAL) 0 % (0-2); EOSINOPHILS % (MANUAL) 0 % (0-7); LYMPHOCYTES % (MANUAL) 8 % (20-46); MONOCYTES % (MANUAL) 6 % (0-11)
[2021-10-26] MEDS: LATANOPROST 2.5 ML DROPS (XALATAN) OP SCH (21:00)
[2021-10-26] MEDS: QUEtiapine FUMARATE 100 MG TABLET PO SCH (22:22)
[2021-10-27] VITALS (33 sets, daily range): BP systolic 91–166
[2021-10-27] MEDS: NACL 0.9% 1,000 ML IV SCH ×2 (00:04→20:41)
[2021-10-27] MEDS: HYDROCORTISONE SOD SUCC 100 MG/2 ML VIAL IVP SCH ×4 (00:05→20:41)
[2021-10-27] MEDS: PROPOFOL DRIP 100 ML IV PRN ×2 (00:07→19:16)
[2021-10-27] MEDS: ACETYLCYSTEINE 20% 4 ML VIAL (RT) INH SCH ×6 (02:34→22:56)
[2021-10-27] MEDS: LevALBUTEROL HCL 1.25 MG/0.5 ML *CONC.* VIAL.NEB (XOPENEX CONC.) INH SCH ×6 (02:34→22:55)
[2021-10-27 06:04] LABS: BASOPHILS % (AUTO) 0.2 % (0.0-2.0); LYMPHOCYTES # (AUTO) 1.1 K/uL (1.0-5.5); LYMPHOCYTES % (AUTO) 4.2 % (20.5-51.5); MEAN CORPUSCULAR HEMOGLOBIN 29 pg (27-31); MEAN CORPUSCULAR HGB CONC 33 % (32-36); MEAN CORPUSCULAR VOLUME 88 fL (79.0-98.0); MONOCYTES # (AUTO) 1.7 K/uL (0.0-1.0); MONOCYTES % (AUTO) 6.6 % (1.7-9.3); NEUTROPHILS # (AUTO) 22.8 K/uL (1.8-7.7); PLATELET COUNT (AUTO) 106 K/uL (130-430); RED BLOOD CELL COUNT(AUTO) 2.72 MIL/uL (4.2-6.2); RED CELL DISTRIBUTION WIDTH 16.3 % (9.0-15.0); WHITE BLOOD COUNT (AUTO) 25.6 K/uL (4.8-10.8)
[2021-10-27 06:14] LABS: ALBUMIN 1.6 g/dL (3.4-4.8); CALCIUM 7.9 mg/dL (8.4-11.0); CREATININE 3.57 mg/dL (0.55-1.30); POTASSIUM 3.2 mmol/L (3.5-5.1); TOTAL BILIRUBIN 0.4 mg/dL (0.0-1.0)
[2021-10-27] MEDS: MEROPENEM 500 MG in NS 50 ML IV SCH ×2 (06:40→14:55)
[2021-10-27] MEDS: LEVOTHYROXINE SODIUM 0.112 MG TABLET PO SCH (06:41)
[2021-10-27] MEDS: LACTULOSE 20 GM/30 ML UDC PO SCH ×2 (09:00→14:54)
[2021-10-27] MEDS: METOPROLOL TARTRATE 25 MG TABLET PO SCH ×2 (09:08→20:42)
[2021-10-27] MEDS: AMIODARONE HCL 200 MG TABLET PO SCH (09:08)
[2021-10-27] MEDS: MULTIVITAMINS TAB 1 TABLET PO SCH (09:08)
[2021-10-27] MEDS: DIVALPROEX SODIUM 250 MG TABLET(DEPAKOTE) PO SCH ×2 (09:08→20:41)
[2021-10-27] MEDS: QUEtiapine FUMARATE 100 MG TABLET PO SCH (20:42)
[2021-10-27] MEDS: LATANOPROST 2.5 ML DROPS (XALATAN) OP SCH (20:44)
[2021-10-28] VITALS (33 sets, daily range): BP systolic 86–184
[2021-10-28] MEDS: LevALBUTEROL HCL 1.25 MG/0.5 ML *CONC.* VIAL.NEB (XOPENEX CONC.) INH SCH ×4 (03:02→20:21)
[2021-10-28] MEDS: ACETYLCYSTEINE 20% 4 ML VIAL (RT) INH SCH ×4 (03:03→20:21)
[2021-10-28] MEDS: MEROPENEM 500 MG in NS 50 ML IV SCH ×2 (03:18→14:51)
[2021-10-28] MEDS: hydrALAZINE HCL 20 MG/ML VIAL IVP PRN (03:21)
[2021-10-28] MEDS: PROPOFOL DRIP 100 ML IV PRN ×4 (04:06→23:28)
[2021-10-28 06:16] LABS: BASOPHILS # (AUTO) 0.1 K/uL (0.0-0.2); BASOPHILS % (AUTO) 0.3 % (0.0-2.0); EOSINOPHILS % (AUTO) 0.1 % (0.0-4.0); HEMATOCRIT 26.3 % (36-48); HEMOGLOBIN 8.7 g/dL (12.0-16.0); LYMPHOCYTES # (AUTO) 1.7 K/uL (1.0-5.5); MEAN CORPUSCULAR HEMOGLOBIN 29 pg (27-31); MEAN CORPUSCULAR HGB CONC 33 % (32-36); MEAN CORPUSCULAR VOLUME 89 fL (79.0-98.0); MONOCYTES # (AUTO) 2.7 K/uL (0.0-1.0); MONOCYTES % (AUTO) 9.6 % (1.7-9.3); NEUTROPHILS # (AUTO) 23.6 K/uL (1.8-7.7); PLATELET COUNT (AUTO) 169 K/uL (130-430); RED BLOOD CELL COUNT(AUTO) 2.96 MIL/uL (4.2-6.2); RED CELL DISTRIBUTION WIDTH 17.8 % (9.0-15.0); WHITE BLOOD COUNT (AUTO) 28.1 K/uL (4.8-10.8)
[2021-10-28] MEDS: LEVOTHYROXINE SODIUM 0.112 MG TABLET PO SCH (06:22)
[2021-10-28 06:52] LABS: ALBUMIN 1.5 g/dL (3.4-4.8); CALCIUM 8.1 mg/dL (8.4-11.0); CREATININE 3.7 mg/dL (0.55-1.30); TOTAL BILIRUBIN 0.5 mg/dL (0.0-1.0)
[2021-10-28] MEDS: METOPROLOL TARTRATE 25 MG TABLET PO SCH ×2 (08:21→21:05)
[2021-10-28] MEDS: DIVALPROEX SODIUM 250 MG TABLET(DEPAKOTE) PO SCH ×2 (08:22→21:04)
[2021-10-28] MEDS: HYDROCORTISONE SOD SUCC 100 MG/2 ML VIAL IVP SCH ×2 (08:22→21:03)
[2021-10-28] MEDS: MULTIVITAMINS TAB 1 TABLET PO SCH (08:23)
[2021-10-28] MEDS: AMIODARONE HCL 200 MG TABLET PO SCH (08:23)
[2021-10-28] MEDS ORDERED: MICAFUNGIN SODIUM 100 MG in NS 100 ML IV ONE (11:00)
[2021-10-28 14:53] LABS: APPEARANCE,SPUN,BODY FLUID HAZY (CLEAR); BF APPEARANCE UNSPUN BLOODY (CLEAR); BODY FLUID COLOR RED (LT YELLOW); BODY FLUID SOURCE/ TYPE PLEURAL; BODY FLUID TOTAL VOLUME 1000 mL; RBC, BODY FLUID 650000 /uL; SOURCE/TYPE ,BODY FLUID THORACENTESIS; WBC, BODY FLUID 1222 /uL
[2021-10-28 14:54] LABS: MONOCYTES,BODY FLUID 85 %; NEUTROPHIL, BODY FLUID 15 %
[2021-10-28] MEDS ORDERED: ALBUMIN HUMAN 25% 200 ML IV ONE (16:45)
[2021-10-28 19:21] LABS: BODY FLUID GLUCOSE 110 mg/dL; BODY FLUID TOTAL PROTEIN 1.5 g/dL
[2021-10-28] MEDS: NACL 0.9% 1,000 ML IV SCH (19:53)
[2021-10-28] MEDS: LATANOPROST 2.5 ML DROPS (XALATAN) OP SCH (21:04)
[2021-10-28] MEDS: QUEtiapine FUMARATE 100 MG TABLET PO SCH (21:05)
[2021-10-29] VITALS (39 sets, daily range): BP systolic 93–182
[2021-10-29 01:54] LABS: BILIRUBIN,URINE NEGATIVE (NEGATIVE); BLOOD, URINE 3+ (NEGATIVE); CLARITY/URINE CLEAR (CLEAR); COLOR,URINE YELLOW (YELLOW); GLUCOSE,URINE NEGATIVE (NEGATIVE); KETONES,URINE NEGATIVE (NEGATIVE); LEUKOCYTE ESTERASE ,URINE TRACE (NEGATIVE); NITRITE, URINE NEGATIVE (NEGATIVE); PROTEIN URINE 1+ (NEGATIVE); UROBILINOGEN,URINE 0.2 (0.2-1.0)
[2021-10-29 02:01] LABS: BACTERIA,URINE MANY /HPF (None Seen)
[2021-10-29] MEDS: ACETYLCYSTEINE 20% 4 ML VIAL (RT) INH SCH ×7 (02:14→23:00)
[2021-10-29] MEDS: LevALBUTEROL HCL 1.25 MG/0.5 ML *CONC.* VIAL.NEB (XOPENEX CONC.) INH SCH ×7 (02:15→23:01)
[2021-10-29] MEDS: MEROPENEM 500 MG in NS 50 ML IV SCH ×2 (03:00→14:31)
[2021-10-29] MEDS: LEVOTHYROXINE SODIUM 0.112 MG TABLET PO SCH (06:25)
[2021-10-29 06:30] LABS: BASOPHILS # (AUTO) 0.1 K/uL (0.0-0.2); BASOPHILS % (AUTO) 0.4 % (0.0-2.0); EOSINOPHILS % (AUTO) 0.1 % (0.0-4.0); HEMATOCRIT 22.1 % (36-48); HEMOGLOBIN 7.3 g/dL (12.0-16.0); LYMPHOCYTES # (AUTO) 1.3 K/uL (1.0-5.5); LYMPHOCYTES % (AUTO) 6.3 % (20.5-51.5); MEAN CORPUSCULAR HEMOGLOBIN 30 pg (27-31); MEAN CORPUSCULAR HGB CONC 33 % (32-36); MEAN CORPUSCULAR VOLUME 90 fL (79.0-98.0); MONOCYTES # (AUTO) 1.6 K/uL (0.0-1.0); MONOCYTES % (AUTO) 7.7 % (1.7-9.3); NEUTROPHILS # (AUTO) 17.7 K/uL (1.8-7.7); NEUTROPHILS % (AUTO) 85.5 % (40.0-70.0); PLATELET COUNT (AUTO) 140 K/uL (130-430); RED BLOOD CELL COUNT(AUTO) 2.45 MIL/uL (4.2-6.2); RED CELL DISTRIBUTION WIDTH 18.4 % (9.0-15.0); WHITE BLOOD COUNT (AUTO) 20.7 K/uL (4.8-10.8)
[2021-10-29] MEDS: PROPOFOL DRIP 100 ML IV PRN ×3 (06:30→19:58)
[2021-10-29 07:07] LABS: ALBUMIN 2.4 g/dL (3.4-4.8); CALCIUM 8.2 mg/dL (8.4-11.0); CREATININE 3.09 mg/dL (0.55-1.30); TOTAL BILIRUBIN 0.6 mg/dL (0.0-1.0)
[2021-10-29 08:12] LABS: POTASSIUM 2.9 mmol/L (3.5-5.1)
[2021-10-29] MEDS: DIVALPROEX SODIUM 250 MG TABLET(DEPAKOTE) PO SCH ×2 (08:21→21:13)
[2021-10-29] MEDS: HYDROCORTISONE SOD SUCC 100 MG/2 ML VIAL IVP SCH ×2 (08:21→21:11)
[2021-10-29] MEDS: MULTIVITAMINS TAB 1 TABLET PO SCH (08:21)
[2021-10-29] MEDS: METOPROLOL TARTRATE 25 MG TABLET PO SCH ×2 (08:22→21:16)
[2021-10-29] MEDS: AMIODARONE HCL 200 MG TABLET PO SCH (08:22)
[2021-10-29] MEDS ORDERED: POTASSIUM CHLORIDE 20 MEQ TAB.PRT.SR NG ONE (08:45)
[2021-10-29] MEDS: MICAFUNGIN SODIUM 100 MG in NS 100 ML IV SCH (10:13)
[2021-10-29] MEDS: POTASSIUM CHLORIDE 40 MEQ in NS 250 ML IV SCH ×2 (10:13→13:19)
[2021-10-29] MEDS: NACL 0.9% 1,000 ML IV SCH (12:12)
[2021-10-29] MEDS: hydrALAZINE HCL 20 MG/ML VIAL IVP PRN ×2 (13:09→18:02)
[2021-10-29] MEDS ORDERED: PANTOPRAZOLE SODIUM 40 MG/VIAL (PROTONIX) IVP ONE (16:00)
[2021-10-29] MEDS ORDERED: GLUCOSE (DEXTROSE) ORAL GEL -Adults PO PRN (18:00)
[2021-10-29] MEDS ORDERED: DEXTROSE 50% JECT 50 ML DISP.SYRIN IVP PRN (18:00)
[2021-10-29] MEDS ORDERED: D5W 1,000 ML IV PRN (18:00)
[2021-10-29] MEDS ORDERED: DEXTROSE 50% JECT 50 ML DISP.SYRIN ONE (18:17)
[2021-10-29] MEDS: LATANOPROST 2.5 ML DROPS (XALATAN) OP SCH (21:13)
[2021-10-29] MEDS: QUEtiapine FUMARATE 100 MG TABLET PO SCH (21:18)
[2021-10-29] MEDS: HEPARIN SODIUM,PORCINE 5,000 UNITS/ML VIAL SUBCUT SCH (21:22)
[2021-10-30] VITALS (41 sets, daily range): BP systolic 116–181
[2021-10-30] MEDS: LevALBUTEROL HCL 1.25 MG/0.5 ML *CONC.* VIAL.NEB (XOPENEX CONC.) INH SCH ×6 (03:24→23:50)
[2021-10-30] MEDS: ACETYLCYSTEINE 20% 4 ML VIAL (RT) INH SCH ×6 (03:24→23:51)
[2021-10-30] MEDS: MEROPENEM 500 MG in NS 50 ML IV SCH ×2 (03:43→15:04)
[2021-10-30 06:34] LABS: HEMATOCRIT 22.6 % (36-48); HEMOGLOBIN 7.4 g/dL (12.0-16.0); MEAN CORPUSCULAR HEMOGLOBIN 29 pg (27-31); MEAN CORPUSCULAR HGB CONC 33 % (32-36); MEAN CORPUSCULAR VOLUME 90 fL (79.0-98.0); PLATELET COUNT (AUTO) 176 K/uL (130-430); RED BLOOD CELL COUNT(AUTO) 2.52 MIL/uL (4.2-6.2); RED CELL DISTRIBUTION WIDTH 19.3 % (9.0-15.0); WHITE BLOOD COUNT (AUTO) 19.7 K/uL (4.8-10.8)
[2021-10-30 07:01] LABS: PROTHROMBIN TIME 10.4 SECS (9.5-12.5)
[2021-10-30] MEDS: LEVOTHYROXINE SODIUM 0.112 MG TABLET PO SCH (08:18)
[2021-10-30] MEDS: PANTOPRAZOLE SODIUM 40 MG/VIAL (PROTONIX) IVP SCH (08:18)
[2021-10-30] MEDS: HYDROCORTISONE SOD SUCC 100 MG/2 ML VIAL IVP SCH ×2 (08:18→20:59)
[2021-10-30] MEDS: DIVALPROEX SODIUM 250 MG TABLET(DEPAKOTE) PO SCH ×2 (08:19→21:01)
[2021-10-30] MEDS: MULTIVITAMINS TAB 1 TABLET PO SCH (08:19)
[2021-10-30] MEDS: hydrALAZINE HCL 20 MG/ML VIAL IVP PRN ×3 (08:19→21:42)
[2021-10-30] MEDS: METOPROLOL TARTRATE 25 MG TABLET PO SCH ×2 (08:20→21:00)
[2021-10-30] MEDS: NACL 0.9% 1,000 ML IV SCH (08:20)
[2021-10-30] MEDS: AMIODARONE HCL 200 MG TABLET PO SCH (08:20)
[2021-10-30] MEDS: HEPARIN SODIUM,PORCINE 5,000 UNITS/ML VIAL SUBCUT SCH ×2 (08:24→21:02)
[2021-10-30 09:03] LABS: CALCIUM 8.4 mg/dL (8.4-11.0); CREATININE 3.29 mg/dL (0.55-1.30); POTASSIUM 4.3 mmol/L (3.5-5.1)
[2021-10-30 09:09] LABS: TOTAL BILIRUBIN 0.4 mg/dL (0.0-1.0)
[2021-10-30] MEDS: MICAFUNGIN SODIUM 100 MG in NS 100 ML IV SCH (10:45)
[2021-10-30 13:04] LABS: BAND % (MANUAL) 1 % (0-6); BASOPHILS % (MANUAL) 0 % (0-2); EOSINOPHILS % (MANUAL) 0 % (0-7); LYMPHOCYTES % (MANUAL) 5 % (20-46); METAMYELOCYTES % 1 % (0-0); MONOCYTES % (MANUAL) 6 % (0-11); MYELOCYTES % 1 % (0-0)
[2021-10-30] MEDS: PROPOFOL DRIP 100 ML IV PRN (14:09)
[2021-10-30] MEDS: LATANOPROST 2.5 ML DROPS (XALATAN) OP SCH (21:00)
[2021-10-30] MEDS: QUEtiapine FUMARATE 100 MG TABLET PO SCH (21:01)
[2021-10-31] VITALS (31 sets, daily range): BP systolic 98–154
[2021-10-31] MEDS: PROPOFOL DRIP 100 ML IV PRN ×3 (00:13→20:30)
[2021-10-31] MEDS: MEROPENEM 500 MG in NS 50 ML IV SCH (03:00)
[2021-10-31] MEDS: LevALBUTEROL HCL 1.25 MG/0.5 ML *CONC.* VIAL.NEB (XOPENEX CONC.) INH SCH ×6 (03:23→23:56)
[2021-10-31] MEDS: ACETYLCYSTEINE 20% 4 ML VIAL (RT) INH SCH ×3 (03:23→11:31)
[2021-10-31] MEDS: NACL 0.9% 1,000 ML IV SCH (04:09)
[2021-10-31] MEDS: LEVOTHYROXINE SODIUM 0.112 MG TABLET PO SCH (06:17)
[2021-10-31 08:04] LABS: BASOPHILS # (AUTO) 0.1 K/uL (0.0-0.2); BASOPHILS % (AUTO) 0.4 % (0.0-2.0); EOSINOPHILS # (AUTO) 0.1 K/uL (0.0-0.4); EOSINOPHILS % (AUTO) 0.6 % (0.0-4.0); HEMATOCRIT 24.5 % (36-48); LYMPHOCYTES # (AUTO) 1.2 K/uL (1.0-5.5); LYMPHOCYTES % (AUTO) 6.5 % (20.5-51.5); MEAN CORPUSCULAR HEMOGLOBIN 30 pg (27-31); MEAN CORPUSCULAR HGB CONC 33 % (32-36); MEAN CORPUSCULAR VOLUME 91 fL (79.0-98.0); MONOCYTES # (AUTO) 1.1 K/uL (0.0-1.0); MONOCYTES % (AUTO) 6.4 % (1.7-9.3); NEUTROPHILS # (AUTO) 15.2 K/uL (1.8-7.7); NEUTROPHILS % (AUTO) 86.1 % (40.0-70.0); PLATELET COUNT (AUTO) 245 K/uL (130-430); RED BLOOD CELL COUNT(AUTO) 2.71 MIL/uL (4.2-6.2); RED CELL DISTRIBUTION WIDTH 20.3 % (9.0-15.0); WHITE BLOOD COUNT (AUTO) 17.6 K/uL (4.8-10.8)
[2021-10-31] MEDS: PANTOPRAZOLE SODIUM 40 MG/VIAL (PROTONIX) IVP SCH (08:24)
[2021-10-31] MEDS: HYDROCORTISONE SOD SUCC 100 MG/2 ML VIAL IVP SCH ×2 (08:24→20:32)
[2021-10-31] MEDS: AMIODARONE HCL 200 MG TABLET PO SCH (08:25)
[2021-10-31] MEDS: DIVALPROEX SODIUM 250 MG TABLET(DEPAKOTE) PO SCH ×2 (08:25→20:31)
[2021-10-31] MEDS: MULTIVITAMINS TAB 1 TABLET PO SCH (08:26)
[2021-10-31] MEDS: METOPROLOL TARTRATE 25 MG TABLET PO SCH ×2 (08:26→20:31)
[2021-10-31] MEDS: HEPARIN SODIUM,PORCINE 5,000 UNITS/ML VIAL SUBCUT SCH ×2 (08:27→20:32)
[2021-10-31 09:40] LABS: ALBUMIN 1.9 g/dL (3.4-4.8); CALCIUM 8.6 mg/dL (8.4-11.0); CREATININE 3.27 mg/dL (0.55-1.30); POTASSIUM 3.7 mmol/L (3.5-5.1); TOTAL BILIRUBIN 0.5 mg/dL (0.0-1.0)
[2021-10-31] MEDS: MICAFUNGIN SODIUM 100 MG in NS 100 ML IV SCH (10:09)
[2021-10-31] MEDS: QUEtiapine FUMARATE 100 MG TABLET PO SCH (20:30)
[2021-10-31] MEDS: LATANOPROST 2.5 ML DROPS (XALATAN) OP SCH (20:33)
[2021-11-01] VITALS (31 sets, daily range): BP systolic 95–165
[2021-11-01] MEDS: NACL 0.9% 1,000 ML IV SCH ×2 (00:16→20:09)
[2021-11-01] MEDS: LevALBUTEROL HCL 1.25 MG/0.5 ML *CONC.* VIAL.NEB (XOPENEX CONC.) INH SCH ×6 (04:14→23:08)
[2021-11-01 06:13] LABS: BASOPHILS # (AUTO) 0.2 K/uL (0.0-0.2); BASOPHILS % (AUTO) 1.1 % (0.0-2.0); EOSINOPHILS # (AUTO) 0.3 K/uL (0.0-0.4); EOSINOPHILS % (AUTO) 1.8 % (0.0-4.0); HEMATOCRIT 23.5 % (36-48); HEMOGLOBIN 7.7 g/dL (12.0-16.0); LYMPHOCYTES # (AUTO) 1.2 K/uL (1.0-5.5); LYMPHOCYTES % (AUTO) 7.4 % (20.5-51.5); MEAN CORPUSCULAR HEMOGLOBIN 30 pg (27-31); MEAN CORPUSCULAR HGB CONC 33 % (32-36); MEAN CORPUSCULAR VOLUME 91 fL (79.0-98.0); MONOCYTES % (AUTO) 6.2 % (1.7-9.3); NEUTROPHILS # (AUTO) 13.9 K/uL (1.8-7.7); PLATELET COUNT (AUTO) 271 K/uL (130-430); RED BLOOD CELL COUNT(AUTO) 2.57 MIL/uL (4.2-6.2); RED CELL DISTRIBUTION WIDTH 20.6 % (9.0-15.0); WHITE BLOOD COUNT (AUTO) 16.6 K/uL (4.8-10.8)
[2021-11-01] MEDS: LEVOTHYROXINE SODIUM 0.112 MG TABLET PO SCH (06:38)
[2021-11-01] MEDS: PROPOFOL DRIP 100 ML IV PRN (06:54)
[2021-11-01 07:29] LABS: ALBUMIN 1.6 g/dL (3.4-4.8); CALCIUM 8.4 mg/dL (8.4-11.0); CREATININE 3.11 mg/dL (0.55-1.30); POTASSIUM 4.5 mmol/L (3.5-5.1); TOTAL BILIRUBIN 0.4 mg/dL (0.0-1.0)
[2021-11-01] MEDS: AMIODARONE HCL 200 MG TABLET PO SCH (09:05)
[2021-11-01] MEDS: MULTIVITAMINS TAB 1 TABLET PO SCH (09:06)
[2021-11-01] MEDS: PANTOPRAZOLE SODIUM 40 MG/VIAL (PROTONIX) IVP SCH (09:06)
[2021-11-01] MEDS: METOPROLOL TARTRATE 25 MG TABLET PO SCH ×2 (09:06→20:29)
[2021-11-01] MEDS: HYDROCORTISONE SOD SUCC 100 MG/2 ML VIAL IVP SCH ×2 (09:06→20:29)
[2021-11-01] MEDS: DIVALPROEX SODIUM 250 MG TABLET(DEPAKOTE) PO SCH ×2 (09:06→20:29)
[2021-11-01] MEDS: HEPARIN SODIUM,PORCINE 5,000 UNITS/ML VIAL SUBCUT SCH ×2 (09:07→20:35)
[2021-11-01] MEDS: PIPERACILLIN/TAZO 2.25G/DEX-IS 50 ML IV SCH ×3 (13:13→23:30)
[2021-11-01 14:54] LABS: NEUTROPHILS % (AUTO) 83.5 % (40.0-70.0)
[2021-11-01] MEDS ORDERED: HEPARIN SODIUM,PORCINE 5,000 UNITS/ML VIAL ONE (17:13)
[2021-11-01] MEDS: DEXMEDETOMIDINE HCL 400 MCG in NS 96 ML IV PRN (18:54)
[2021-11-01] MEDS: LATANOPROST 2.5 ML DROPS (XALATAN) OP SCH (20:29)
[2021-11-01] MEDS: QUEtiapine FUMARATE 100 MG TABLET PO SCH (20:29)
[2021-11-01] MEDS: VORICONAZOLE 200 MG in NS 100 ML IV SCH (20:33)
[2021-11-02] VITALS (32 sets, daily range): BP systolic 89–178
[2021-11-02] MEDS: LevALBUTEROL HCL 1.25 MG/0.5 ML *CONC.* VIAL.NEB (XOPENEX CONC.) INH SCH ×6 (03:15→23:08)
[2021-11-02] MEDS: PIPERACILLIN/TAZO 2.25G/DEX-IS 50 ML IV SCH ×3 (06:35→18:32)
[2021-11-02] MEDS: LEVOTHYROXINE SODIUM 0.112 MG TABLET PO SCH (06:37)
[2021-11-02 06:45] LABS: BASOPHILS # (AUTO) 0.1 K/uL (0.0-0.2); BASOPHILS % (AUTO) 0.9 % (0.0-2.0); EOSINOPHILS # (AUTO) 0.2 K/uL (0.0-0.4); EOSINOPHILS % (AUTO) 1.2 % (0.0-4.0); LYMPHOCYTES # (AUTO) 0.7 K/uL (1.0-5.5); LYMPHOCYTES % (AUTO) 4.9 % (20.5-51.5); MEAN CORPUSCULAR HEMOGLOBIN 29 pg (27-31); MEAN CORPUSCULAR HGB CONC 32 % (32-36); MEAN CORPUSCULAR VOLUME 92 fL (79.0-98.0); MONOCYTES # (AUTO) 0.5 K/uL (0.0-1.0); MONOCYTES % (AUTO) 3.9 % (1.7-9.3); NEUTROPHILS # (AUTO) 12.3 K/uL (1.8-7.7); NEUTROPHILS % (AUTO) 89.1 % (40.0-70.0); PLATELET COUNT (AUTO) 255 K/uL (130-430); RED BLOOD CELL COUNT(AUTO) 2.23 MIL/uL (4.2-6.2); RED CELL DISTRIBUTION WIDTH 20.8 % (9.0-15.0); WHITE BLOOD COUNT (AUTO) 13.8 K/uL (4.8-10.8)
[2021-11-02] MEDS ORDERED: DEXMEDETOMIDINE HCL 200 MCG/2 ML VIAL IV ONE (06:47)
[2021-11-02 06:49] LABS: CALCIUM 8.6 mg/dL (8.4-11.0); CREATININE 3.2 mg/dL (0.55-1.30); POTASSIUM 3.3 mmol/L (3.5-5.1)
[2021-11-02] MEDS: DEXMEDETOMIDINE HCL 400 MCG in NS 96 ML IV PRN (06:50)
[2021-11-02 07:50] LABS: HEMATOCRIT 20.6 % (36-48); HEMOGLOBIN 6.6 g/dL (12.0-16.0)
[2021-11-02] MEDS: INSULIN REGULAR, HUMAN 100 UNITS/ML, 10 ML VIAL (humuLIN R) SUBCUT PRN (09:22)
[2021-11-02] MEDS: NACL 0.9% 1,000 ML IV SCH (10:06)
[2021-11-02] MEDS: DIVALPROEX SODIUM 250 MG TABLET(DEPAKOTE) PO SCH ×2 (10:07→21:39)
[2021-11-02] MEDS: VORICONAZOLE 200 MG in NS 100 ML IV SCH ×2 (10:07→21:41)
[2021-11-02] MEDS: MULTIVITAMINS TAB 1 TABLET PO SCH (10:07)
[2021-11-02] MEDS: METOPROLOL TARTRATE 25 MG TABLET PO SCH ×2 (10:08→21:40)
[2021-11-02] MEDS: AMIODARONE HCL 200 MG TABLET PO SCH (10:08)
[2021-11-02] MEDS: HYDROCORTISONE SOD SUCC 100 MG/2 ML VIAL IVP SCH ×2 (10:09→21:38)
[2021-11-02] MEDS: PANTOPRAZOLE SODIUM 40 MG/VIAL (PROTONIX) IVP SCH (10:09)
[2021-11-02] MEDS: HEPARIN SODIUM,PORCINE 5,000 UNITS/ML VIAL SUBCUT SCH ×2 (10:11→21:42)
[2021-11-02] MEDS: QUEtiapine FUMARATE 100 MG TABLET PO SCH (21:39)
[2021-11-02] MEDS: LATANOPROST 2.5 ML DROPS (XALATAN) OP SCH (21:52)
[2021-11-03] VITALS (30 sets, daily range): BP systolic 94–181
[2021-11-03] MEDS: PIPERACILLIN/TAZO 2.25G/DEX-IS 50 ML IV SCH ×4 (01:16→17:01)
[2021-11-03] MEDS: LevALBUTEROL HCL 1.25 MG/0.5 ML *CONC.* VIAL.NEB (XOPENEX CONC.) INH SCH ×3 (03:05→11:24)
[2021-11-03] MEDS: LEVOTHYROXINE SODIUM 0.112 MG TABLET PO SCH (07:01)
[2021-11-03 08:05] LABS: BASOPHILS # (AUTO) 0.1 K/uL (0.0-0.2); BASOPHILS % (AUTO) 0.4 % (0.0-2.0); HEMATOCRIT 32.3 % (36-48); HEMOGLOBIN 10.8 g/dL (12.0-16.0); LYMPHOCYTES # (AUTO) 1.1 K/uL (1.0-5.5); LYMPHOCYTES % (AUTO) 6.8 % (20.5-51.5); MEAN CORPUSCULAR HEMOGLOBIN 30 pg (27-31); MEAN CORPUSCULAR HGB CONC 33 % (32-36); MEAN CORPUSCULAR VOLUME 89 fL (79.0-98.0); MONOCYTES # (AUTO) 0.5 K/uL (0.0-1.0); NEUTROPHILS # (AUTO) 13.9 K/uL (1.8-7.7); NEUTROPHILS % (AUTO) 89.8 % (40.0-70.0); PLATELET COUNT (AUTO) 212 K/uL (130-430); RED BLOOD CELL COUNT(AUTO) 3.63 MIL/uL (4.2-6.2); RED CELL DISTRIBUTION WIDTH 18.1 % (9.0-15.0); WHITE BLOOD COUNT (AUTO) 15.5 K/uL (4.8-10.8)
[2021-11-03 08:41] LABS: CALCIUM 8.5 mg/dL (8.4-11.0); CREATININE 2.95 mg/dL (0.55-1.30); POTASSIUM 3.4 mmol/L (3.5-5.1)
[2021-11-03] MEDS: MULTIVITAMINS TAB 1 TABLET PO SCH (08:48)
[2021-11-03] MEDS: METOPROLOL TARTRATE 25 MG TABLET PO SCH ×2 (08:48→22:18)
[2021-11-03] MEDS: PANTOPRAZOLE SODIUM 40 MG/VIAL (PROTONIX) IVP SCH (08:48)
[2021-11-03] MEDS: AMIODARONE HCL 200 MG TABLET PO SCH (08:48)
[2021-11-03] MEDS: DIVALPROEX SODIUM 250 MG TABLET(DEPAKOTE) PO SCH ×2 (08:48→22:17)
[2021-11-03] MEDS: HYDROCORTISONE SOD SUCC 100 MG/2 ML VIAL IVP SCH ×2 (08:48→22:20)
[2021-11-03] MEDS: HEPARIN SODIUM,PORCINE 5,000 UNITS/ML VIAL SUBCUT SCH ×2 (08:51→22:29)
[2021-11-03] MEDS: VORICONAZOLE 200 MG in NS 100 ML IV SCH ×2 (08:56→22:16)
[2021-11-03] MEDS: NACL 0.9% 1,000 ML IV SCH (11:10)
[2021-11-03] MEDS ORDERED: HEPARIN SODIUM,PORCINE 5,000 UNITS/ML VIAL ONE (12:46)
[2021-11-03] MEDS: hydrALAZINE HCL 20 MG/ML VIAL IVP PRN (18:25)
[2021-11-03] MEDS: QUEtiapine FUMARATE 100 MG TABLET PO SCH (22:18)
[2021-11-03] MEDS: LATANOPROST 2.5 ML DROPS (XALATAN) OP SCH (22:19)
[2021-11-04] VITALS (32 sets, daily range): BP systolic 83–169
[2021-11-04] MEDS: PIPERACILLIN/TAZO 2.25G/DEX-IS 50 ML IV SCH ×5 (00:52→23:49)
[2021-11-04] MEDS: LEVOTHYROXINE SODIUM 0.112 MG TABLET PO SCH (06:02)
[2021-11-04 06:25] LABS: BASOPHILS # (AUTO) 0.1 K/uL (0.0-0.2); BASOPHILS % (AUTO) 0.9 % (0.0-2.0); EOSINOPHILS % (AUTO) 0.2 % (0.0-4.0); HEMATOCRIT 29.4 % (36-48); HEMOGLOBIN 10.1 g/dL (12.0-16.0); LYMPHOCYTES # (AUTO) 1.1 K/uL (1.0-5.5); LYMPHOCYTES % (AUTO) 7.4 % (20.5-51.5); MEAN CORPUSCULAR HEMOGLOBIN 30 pg (27-31); MEAN CORPUSCULAR HGB CONC 34 % (32-36); MEAN CORPUSCULAR VOLUME 88 fL (79.0-98.0); MONOCYTES # (AUTO) 0.5 K/uL (0.0-1.0); MONOCYTES % (AUTO) 3.7 % (1.7-9.3); NEUTROPHILS % (AUTO) 87.8 % (40.0-70.0); PLATELET COUNT (AUTO) 189 K/uL (130-430); RED BLOOD CELL COUNT(AUTO) 3.35 MIL/uL (4.2-6.2); RED CELL DISTRIBUTION WIDTH 17.9 % (9.0-15.0); WHITE BLOOD COUNT (AUTO) 14.8 K/uL (4.8-10.8)
[2021-11-04 06:43] LABS: ALBUMIN 1.8 g/dL (3.4-4.8); CALCIUM 8.2 mg/dL (8.4-11.0); CREATININE 2.31 mg/dL (0.55-1.30); TOTAL BILIRUBIN 0.4 mg/dL (0.0-1.0)
[2021-11-04] MEDS: LevALBUTEROL HCL 1.25 MG/0.5 ML *CONC.* VIAL.NEB (XOPENEX CONC.) INH SCH ×4 (07:37→21:20)
[2021-11-04 07:45] LABS: POTASSIUM 2.7 mmol/L (3.5-5.1)
[2021-11-04] MEDS: NACL 0.9% 1,000 ML IV SCH (08:09)
[2021-11-04] MEDS: HYDROCORTISONE SOD SUCC 100 MG/2 ML VIAL IVP SCH ×2 (08:09→20:56)
[2021-11-04] MEDS: PANTOPRAZOLE SODIUM 40 MG/VIAL (PROTONIX) IVP SCH (08:09)
[2021-11-04] MEDS: METOPROLOL TARTRATE 25 MG TABLET PO SCH ×2 (08:10→20:57)
[2021-11-04] MEDS: AMIODARONE HCL 200 MG TABLET PO SCH (08:11)
[2021-11-04] MEDS: VORICONAZOLE 200 MG in NS 100 ML IV SCH ×2 (08:11→20:57)
[2021-11-04] MEDS: DIVALPROEX SODIUM 250 MG TABLET(DEPAKOTE) PO SCH ×2 (08:11→20:56)
[2021-11-04] MEDS: MULTIVITAMINS TAB 1 TABLET PO SCH (08:11)
[2021-11-04] MEDS: HEPARIN SODIUM,PORCINE 5,000 UNITS/ML VIAL SUBCUT SCH ×2 (08:14→20:59)
[2021-11-04] MEDS ORDERED: POTASSIUM CHLORIDE 20 MEQ/PKT PACKET PO ONE (08:45)
[2021-11-04] MEDS ORDERED: DEXMEDETOMIDINE HCL 200 MCG/2 ML VIAL IV ONE (09:55)
[2021-11-04] MEDS: QUEtiapine FUMARATE 100 MG TABLET PO SCH (20:56)
[2021-11-04] MEDS: LATANOPROST 2.5 ML DROPS (XALATAN) OP SCH (21:00)
[2021-11-05] VITALS (33 sets, daily range): BP systolic 90–158
[2021-11-05] MEDS: DEXMEDETOMIDINE HCL 400 MCG in NS 96 ML IV PRN (02:09)
[2021-11-05] MEDS: NACL 0.9% 1,000 ML IV SCH (04:09)
[2021-11-05] MEDS: LevALBUTEROL HCL 1.25 MG/0.5 ML *CONC.* VIAL.NEB (XOPENEX CONC.) INH SCH ×7 (05:43→23:00)
[2021-11-05] MEDS: PIPERACILLIN/TAZO 2.25G/DEX-IS 50 ML IV SCH ×3 (05:55→18:24)
[2021-11-05 05:59] LABS: BASOPHILS # (AUTO) 0.1 K/uL (0.0-0.2); EOSINOPHILS % (AUTO) 0.3 % (0.0-4.0); HEMATOCRIT 28.3 % (36-48); HEMOGLOBIN 9.7 g/dL (12.0-16.0); LYMPHOCYTES % (AUTO) 9.5 % (20.5-51.5); MEAN CORPUSCULAR HEMOGLOBIN 30 pg (27-31); MEAN CORPUSCULAR HGB CONC 34 % (32-36); MEAN CORPUSCULAR VOLUME 88 fL (79.0-98.0); MONOCYTES # (AUTO) 0.5 K/uL (0.0-1.0); MONOCYTES % (AUTO) 4.5 % (1.7-9.3); NEUTROPHILS # (AUTO) 9.1 K/uL (1.8-7.7); NEUTROPHILS % (AUTO) 84.7 % (40.0-70.0); PLATELET COUNT (AUTO) 172 K/uL (130-430); RED BLOOD CELL COUNT(AUTO) 3.21 MIL/uL (4.2-6.2); RED CELL DISTRIBUTION WIDTH 18.6 % (9.0-15.0); WHITE BLOOD COUNT (AUTO) 10.7 K/uL (4.8-10.8)
[2021-11-05] MEDS: LEVOTHYROXINE SODIUM 0.112 MG TABLET PO SCH (06:27)
[2021-11-05 06:32] LABS: ALBUMIN 1.7 g/dL (3.4-4.8); CALCIUM 8.2 mg/dL (8.4-11.0); CREATININE 2.35 mg/dL (0.55-1.30); TOTAL BILIRUBIN 0.2 mg/dL (0.0-1.0)
[2021-11-05] MEDS: MULTIVITAMINS TAB 1 TABLET PO SCH (08:30)
[2021-11-05] MEDS: DIVALPROEX SODIUM 250 MG TABLET(DEPAKOTE) PO SCH ×2 (08:30→21:03)
[2021-11-05] MEDS: VORICONAZOLE 200 MG in NS 100 ML IV SCH (08:31)
[2021-11-05] MEDS: AMIODARONE HCL 200 MG TABLET PO SCH (08:31)
[2021-11-05] MEDS: PANTOPRAZOLE SODIUM 40 MG/VIAL (PROTONIX) IVP SCH (08:31)
[2021-11-05] MEDS: HYDROCORTISONE SOD SUCC 100 MG/2 ML VIAL IVP SCH ×2 (08:32→21:12)
[2021-11-05] MEDS: METOPROLOL TARTRATE 25 MG TABLET PO SCH ×2 (08:33→21:11)
[2021-11-05] MEDS: HEPARIN SODIUM,PORCINE 5,000 UNITS/ML VIAL SUBCUT SCH ×2 (08:34→21:10)
[2021-11-05] MEDS ORDERED: HEPARIN SODIUM,PORCINE 5,000 UNITS/ML VIAL MC ONE (10:00)
[2021-11-05] MEDS: POTASSIUM CHLORIDE 40 MEQ in D5W 250 ML IV SCH ×2 (14:41→18:23)
[2021-11-05] MEDS ORDERED: LevALBUTEROL HCL 1.25 MG/0.5 ML *CONC.* VIAL.NEB (XOPENEX CONC.) INH ONE (15:06)
[2021-11-05] MEDS: QUEtiapine FUMARATE 100 MG TABLET PO SCH (21:11)
[2021-11-05] MEDS: LATANOPROST 2.5 ML DROPS (XALATAN) OP SCH (21:20)
[2021-11-06] VITALS (28 sets, daily range): BP systolic 88–166
[2021-11-06] MEDS: VORICONAZOLE 200 MG in NS 100 ML IV SCH ×3 (00:14→22:06)
[2021-11-06] MEDS: PIPERACILLIN/TAZO 2.25G/DEX-IS 50 ML IV SCH ×5 (00:15→23:24)
[2021-11-06] MEDS: LevALBUTEROL HCL 1.25 MG/0.5 ML *CONC.* VIAL.NEB (XOPENEX CONC.) INH SCH ×6 (03:00→23:10)
[2021-11-06] MEDS: LEVOTHYROXINE SODIUM 0.112 MG TABLET PO SCH (06:21)
[2021-11-06 06:46] LABS: BASOPHILS # (AUTO) 0.1 K/uL (0.0-0.2); EOSINOPHILS % (AUTO) 0.2 % (0.0-4.0); HEMATOCRIT 28.8 % (36-48); HEMOGLOBIN 9.8 g/dL (12.0-16.0); LYMPHOCYTES # (AUTO) 0.8 K/uL (1.0-5.5); LYMPHOCYTES % (AUTO) 9.9 % (20.5-51.5); MEAN CORPUSCULAR HEMOGLOBIN 30 pg (27-31); MEAN CORPUSCULAR HGB CONC 34 % (32-36); MEAN CORPUSCULAR VOLUME 89 fL (79.0-98.0); MONOCYTES # (AUTO) 0.3 K/uL (0.0-1.0); MONOCYTES % (AUTO) 3.9 % (1.7-9.3); NEUTROPHILS # (AUTO) 6.8 K/uL (1.8-7.7); PLATELET COUNT (AUTO) 143 K/uL (130-430); RED BLOOD CELL COUNT(AUTO) 3.25 MIL/uL (4.2-6.2); RED CELL DISTRIBUTION WIDTH 18.4 % (9.0-15.0)
[2021-11-06 07:11] LABS: ALBUMIN 1.7 g/dL (3.4-4.8); CALCIUM 8.2 mg/dL (8.4-11.0); CREATININE 1.88 mg/dL (0.55-1.30); POTASSIUM 4.1 mmol/L (3.5-5.1); TOTAL BILIRUBIN 0.3 mg/dL (0.0-1.0)
[2021-11-06] MEDS: PANTOPRAZOLE SODIUM 40 MG/VIAL (PROTONIX) IVP SCH (09:54)
[2021-11-06] MEDS: HYDROCORTISONE SOD SUCC 100 MG/2 ML VIAL IVP SCH ×2 (09:55→20:47)
[2021-11-06] MEDS: MULTIVITAMINS TAB 1 TABLET PO SCH (09:56)
[2021-11-06] MEDS: DIVALPROEX SODIUM 250 MG TABLET(DEPAKOTE) PO SCH ×2 (09:56→20:48)
[2021-11-06] MEDS: METOPROLOL TARTRATE 25 MG TABLET PO SCH ×2 (09:57→20:48)
[2021-11-06] MEDS: AMIODARONE HCL 200 MG TABLET PO SCH (09:57)
[2021-11-06] MEDS: HEPARIN SODIUM,PORCINE 5,000 UNITS/ML VIAL SUBCUT SCH ×2 (09:58→20:49)
[2021-11-06] MEDS: DEXMEDETOMIDINE HCL 400 MCG in NS 96 ML IV PRN ×2 (12:06→22:07)
[2021-11-06] MEDS: QUEtiapine FUMARATE 100 MG TABLET PO SCH (20:47)
[2021-11-06] MEDS: NACL 0.9% 1,000 ML IV SCH (22:05)
[2021-11-06] MEDS: LATANOPROST 2.5 ML DROPS (XALATAN) OP SCH (22:06)
[2021-11-06 23:34] LABS: BODY FLUID SOURCE/ TYPE THORACENTESIS; SOURCE/TYPE ,BODY FLUID THORACENTESIS
[2021-11-06 23:35] LABS: APPEARANCE,SPUN,BODY FLUID CLEAR (CLEAR); BF APPEARANCE UNSPUN CLOUDY (CLEAR); BODY FLUID COLOR YELLOW (LT YELLOW); BODY FLUID TOTAL VOLUME 500 mL
[2021-11-06 23:46] LABS: RBC, BODY FLUID 18639 /uL; WBC, BODY FLUID 251 /uL
[2021-11-06 23:55] LABS: EOSINOPHIL, BODY FLUID 0 %; LYMPHOCYTES, BODY FLUID 10 %; MONOCYTES,BODY FLUID 27 %; NEUTROPHIL, BODY FLUID 63 %
[2021-11-07] VITALS (24 sets, daily range): BP systolic 122–177
[2021-11-07] MEDS: LevALBUTEROL HCL 1.25 MG/0.5 ML *CONC.* VIAL.NEB (XOPENEX CONC.) INH SCH ×6 (03:38→23:45)
[2021-11-07] MEDS: PIPERACILLIN/TAZO 2.25G/DEX-IS 50 ML IV SCH ×3 (05:44→18:55)
[2021-11-07] MEDS: LEVOTHYROXINE SODIUM 0.112 MG TABLET PO SCH (06:20)
[2021-11-07 06:49] LABS: BASOPHILS # (AUTO) 0.1 K/uL (0.0-0.2); BASOPHILS % (AUTO) 0.9 % (0.0-2.0); EOSINOPHILS % (AUTO) 0.1 % (0.0-4.0); HEMATOCRIT 27.2 % (36-48); HEMOGLOBIN 9.3 g/dL (12.0-16.0); LYMPHOCYTES # (AUTO) 0.7 K/uL (1.0-5.5); MEAN CORPUSCULAR HEMOGLOBIN 30 pg (27-31); MEAN CORPUSCULAR HGB CONC 34 % (32-36); MEAN CORPUSCULAR VOLUME 89 fL (79.0-98.0); MONOCYTES # (AUTO) 0.3 K/uL (0.0-1.0); MONOCYTES % (AUTO) 3.8 % (1.7-9.3); NEUTROPHILS # (AUTO) 5.6 K/uL (1.8-7.7); NEUTROPHILS % (AUTO) 84.2 % (40.0-70.0); PLATELET COUNT (AUTO) 138 K/uL (130-430); RED BLOOD CELL COUNT(AUTO) 3.07 MIL/uL (4.2-6.2); RED CELL DISTRIBUTION WIDTH 18.3 % (9.0-15.0); WHITE BLOOD COUNT (AUTO) 6.7 K/uL (4.8-10.8)
[2021-11-07 06:54] LABS: PROTHROMBIN TIME 10.6 SECS (9.5-12.5)
[2021-11-07 07:01] LABS: CALCIUM 8.5 mg/dL (8.4-11.0); CREATININE 1.93 mg/dL (0.55-1.30); POTASSIUM 3.6 mmol/L (3.5-5.1)
[2021-11-07] MEDS: PANTOPRAZOLE SODIUM 40 MG/VIAL (PROTONIX) IVP SCH (09:43)
[2021-11-07] MEDS: VORICONAZOLE 200 MG in NS 100 ML IV SCH ×2 (09:44→21:00)
[2021-11-07] MEDS: HYDROCORTISONE SOD SUCC 100 MG/2 ML VIAL IVP SCH ×2 (09:45→21:00)
[2021-11-07] MEDS: MULTIVITAMINS TAB 1 TABLET PO SCH (09:45)
[2021-11-07] MEDS: DIVALPROEX SODIUM 250 MG TABLET(DEPAKOTE) PO SCH ×2 (09:45→21:00)
[2021-11-07] MEDS: AMIODARONE HCL 200 MG TABLET PO SCH (09:46)
[2021-11-07] MEDS: METOPROLOL TARTRATE 25 MG TABLET PO SCH ×2 (09:46→21:00)
[2021-11-07] MEDS: FUROSEMIDE 20 MG/2 ML VIAL IVP SCH ×2 (09:47→21:00)
[2021-11-07] MEDS: HEPARIN SODIUM,PORCINE 5,000 UNITS/ML VIAL SUBCUT SCH ×2 (09:49→21:00)
[2021-11-07] MEDS: DEXMEDETOMIDINE HCL 400 MCG in NS 96 ML IV PRN (13:59)
[2021-11-07] MEDS: NACL 0.9% 1,000 ML IV SCH (16:54)
[2021-11-07] MEDS: LATANOPROST 2.5 ML DROPS (XALATAN) OP SCH (21:00)
[2021-11-07] MEDS: QUEtiapine FUMARATE 100 MG TABLET PO SCH (21:00)
[2021-11-08] VITALS (24 sets, daily range): BP systolic 93–154
[2021-11-08] MEDS: LevALBUTEROL HCL 1.25 MG/0.5 ML *CONC.* VIAL.NEB (XOPENEX CONC.) INH SCH ×6 (04:26→23:11)
[2021-11-08] MEDS: PIPERACILLIN/TAZO 2.25G/DEX-IS 50 ML IV SCH ×4 (06:00→18:38)
[2021-11-08 06:58] LABS: ALBUMIN 1.9 g/dL (3.4-4.8); CALCIUM 8.3 mg/dL (8.4-11.0); CREATININE 2.01 mg/dL (0.55-1.30); POTASSIUM 3.4 mmol/L (3.5-5.1); TOTAL BILIRUBIN 0.3 mg/dL (0.0-1.0)
[2021-11-08 07:03] LABS: BASOPHILS # (AUTO) 0.1 K/uL (0.0-0.2); BASOPHILS % (AUTO) 1.1 % (0.0-2.0); EOSINOPHILS % (AUTO) 0.4 % (0.0-4.0); HEMOGLOBIN 9.7 g/dL (12.0-16.0); LYMPHOCYTES # (AUTO) 0.7 K/uL (1.0-5.5); LYMPHOCYTES % (AUTO) 9.4 % (20.5-51.5); MEAN CORPUSCULAR HEMOGLOBIN 31 pg (27-31); MEAN CORPUSCULAR HGB CONC 34 % (32-36); MEAN CORPUSCULAR VOLUME 91 fL (79.0-98.0); MONOCYTES # (AUTO) 0.3 K/uL (0.0-1.0); MONOCYTES % (AUTO) 4.2 % (1.7-9.3); NEUTROPHILS # (AUTO) 6.4 K/uL (1.8-7.7); NEUTROPHILS % (AUTO) 84.9 % (40.0-70.0); PLATELET COUNT (AUTO) 153 K/uL (130-430); RED BLOOD CELL COUNT(AUTO) 3.18 MIL/uL (4.2-6.2); RED CELL DISTRIBUTION WIDTH 19.4 % (9.0-15.0); WHITE BLOOD COUNT (AUTO) 7.6 K/uL (4.8-10.8)
[2021-11-08] MEDS: LEVOTHYROXINE SODIUM 0.112 MG TABLET PO SCH (08:16)
[2021-11-08] MEDS: VORICONAZOLE 200 MG in NS 100 ML IV SCH ×2 (08:17→21:49)
[2021-11-08] MEDS: PANTOPRAZOLE SODIUM 40 MG/VIAL (PROTONIX) IVP SCH (08:18)
[2021-11-08] MEDS: HYDROCORTISONE SOD SUCC 100 MG/2 ML VIAL IVP SCH ×2 (08:18→21:53)
[2021-11-08] MEDS: DIVALPROEX SODIUM 250 MG TABLET(DEPAKOTE) PO SCH ×2 (08:18→21:54)
[2021-11-08] MEDS: MULTIVITAMINS TAB 1 TABLET PO SCH (08:19)
[2021-11-08] MEDS: HEPARIN SODIUM,PORCINE 5,000 UNITS/ML VIAL SUBCUT SCH ×3 (08:21→22:02)
[2021-11-08] MEDS: FUROSEMIDE 20 MG/2 ML VIAL IVP SCH ×2 (09:19→21:51)
[2021-11-08] MEDS: AMIODARONE HCL 200 MG TABLET PO SCH (09:20)
[2021-11-08] MEDS: METOPROLOL TARTRATE 25 MG TABLET PO SCH ×2 (09:21→22:04)
[2021-11-08] MEDS: NACL 0.9% 1,000 ML IV SCH (13:02)
[2021-11-08] MEDS: LATANOPROST 2.5 ML DROPS (XALATAN) OP SCH (21:00)
[2021-11-08] MEDS: QUEtiapine FUMARATE 100 MG TABLET PO SCH (21:58)
[2021-11-09] VITALS (23 sets, daily range): BP systolic 85–167
[2021-11-09] MEDS: DEXMEDETOMIDINE HCL 400 MCG in NS 96 ML IV PRN ×3 (00:24→22:56)
[2021-11-09] MEDS: PIPERACILLIN/TAZO 2.25G/DEX-IS 50 ML IV SCH ×5 (00:43→23:42)
[2021-11-09] MEDS: LevALBUTEROL HCL 1.25 MG/0.5 ML *CONC.* VIAL.NEB (XOPENEX CONC.) INH SCH ×5 (03:06→19:43)
[2021-11-09 06:33] LABS: HEMATOCRIT 25.8 % (36-48); HEMOGLOBIN 8.7 g/dL (12.0-16.0); MEAN CORPUSCULAR HEMOGLOBIN 31 pg (27-31); MEAN CORPUSCULAR HGB CONC 34 % (32-36); MEAN CORPUSCULAR VOLUME 91 fL (79.0-98.0); PLATELET COUNT (AUTO) 142 K/uL (130-430); RED BLOOD CELL COUNT(AUTO) 2.84 MIL/uL (4.2-6.2); WHITE BLOOD COUNT (AUTO) 6.2 K/uL (4.8-10.8)
[2021-11-09 07:22] LABS: ALBUMIN 1.5 g/dL (3.4-4.8); CALCIUM 7.7 mg/dL (8.4-11.0); CREATININE 1.98 mg/dL (0.55-1.30); POTASSIUM 3.7 mmol/L (3.5-5.1); TOTAL BILIRUBIN 0.3 mg/dL (0.0-1.0)
[2021-11-09] MEDS: HEPARIN SODIUM,PORCINE 5,000 UNITS/ML VIAL SUBCUT SCH ×3 (07:40→21:31)
[2021-11-09] MEDS: VORICONAZOLE 200 MG in NS 100 ML IV SCH ×2 (09:29→20:25)
[2021-11-09] MEDS: NACL 0.9% 1,000 ML IV SCH (09:29)
[2021-11-09] MEDS: PANTOPRAZOLE SODIUM 40 MG/VIAL (PROTONIX) IVP SCH (09:30)
[2021-11-09] MEDS: HYDROCORTISONE SOD SUCC 100 MG/2 ML VIAL IVP SCH ×2 (09:30→20:25)
[2021-11-09] MEDS: LEVOTHYROXINE SODIUM 0.112 MG TABLET PO SCH (09:30)
[2021-11-09] MEDS: MULTIVITAMINS TAB 1 TABLET PO SCH (09:31)
[2021-11-09] MEDS: DIVALPROEX SODIUM 250 MG TABLET(DEPAKOTE) PO SCH ×2 (09:31→20:27)
[2021-11-09] MEDS: FUROSEMIDE 20 MG/2 ML VIAL IVP SCH ×2 (09:32→20:26)
[2021-11-09] MEDS: AMIODARONE HCL 200 MG TABLET PO SCH (09:33)
[2021-11-09] MEDS: METOPROLOL TARTRATE 25 MG TABLET PO SCH ×2 (09:33→20:27)
[2021-11-09 12:50] LABS: BASOPHILS % (MANUAL) 0 % (0-2); EOSINOPHILS % (MANUAL) 2 % (0-7); LYMPHOCYTES % (MANUAL) 13 % (20-46); MONOCYTES % (MANUAL) 8 % (0-11)
[2021-11-09] MEDS: QUEtiapine FUMARATE 100 MG TABLET PO SCH (20:28)
[2021-11-09] MEDS: LATANOPROST 2.5 ML DROPS (XALATAN) OP SCH (20:28)
[2021-11-10] VITALS (22 sets, daily range): BP systolic 85–180
[2021-11-10] MEDS: LevALBUTEROL HCL 1.25 MG/0.5 ML *CONC.* VIAL.NEB (XOPENEX CONC.) INH SCH ×6 (00:03→21:38)
[2021-11-10] MEDS: PIPERACILLIN/TAZO 2.25G/DEX-IS 50 ML IV SCH ×3 (05:32→19:21)
[2021-11-10] MEDS: LEVOTHYROXINE SODIUM 0.112 MG TABLET PO SCH (05:32)
[2021-11-10] MEDS: HEPARIN SODIUM,PORCINE 5,000 UNITS/ML VIAL SUBCUT SCH ×3 (05:33→13:30)
[2021-11-10] MEDS: NACL 0.9% 1,000 ML IV SCH (05:35)
[2021-11-10 06:34] LABS: BASOPHILS % (AUTO) 0.5 % (0.0-2.0); EOSINOPHILS % (AUTO) 0.2 % (0.0-4.0); HEMATOCRIT 29.9 % (36-48); HEMOGLOBIN 10.2 g/dL (12.0-16.0); LYMPHOCYTES # (AUTO) 0.8 K/uL (1.0-5.5); LYMPHOCYTES % (AUTO) 14.4 % (20.5-51.5); MEAN CORPUSCULAR HEMOGLOBIN 31 pg (27-31); MEAN CORPUSCULAR HGB CONC 34 % (32-36); MEAN CORPUSCULAR VOLUME 90 fL (79.0-98.0); MONOCYTES # (AUTO) 0.3 K/uL (0.0-1.0); MONOCYTES % (AUTO) 5.3 % (1.7-9.3); NEUTROPHILS # (AUTO) 4.6 K/uL (1.8-7.7); NEUTROPHILS % (AUTO) 79.6 % (40.0-70.0); PLATELET COUNT (AUTO) 163 K/uL (130-430); RED BLOOD CELL COUNT(AUTO) 3.31 MIL/uL (4.2-6.2); RED CELL DISTRIBUTION WIDTH 18.7 % (9.0-15.0); WHITE BLOOD COUNT (AUTO) 5.8 K/uL (4.8-10.8)
[2021-11-10] MEDS: FUROSEMIDE 20 MG/2 ML VIAL IVP SCH ×2 (08:14→20:12)
[2021-11-10 08:31] LABS: CALCIUM 8.7 mg/dL (8.4-11.0); CREATININE 1.99 mg/dL (0.55-1.30)
[2021-11-10] MEDS: PANTOPRAZOLE SODIUM 40 MG/VIAL (PROTONIX) IVP SCH (09:00)
[2021-11-10] MEDS ORDERED: FUROSEMIDE 40 MG/4 ML VIAL IVP SCH (09:00)
[2021-11-10 09:20] LABS: POTASSIUM 2.8 mmol/L (3.5-5.1)
[2021-11-10] MEDS ORDERED: COMMUNICATION ORDER XX ONE (10:15)
[2021-11-10] MEDS: POTASSIUM CHLORIDE 40 MEQ in D5W 250 ML IV SCH ×2 (11:00→17:03)
[2021-11-10] MEDS: HYDROCORTISONE SOD SUCC 100 MG/2 ML VIAL IVP SCH ×2 (11:06→20:12)
[2021-11-10] MEDS: DIVALPROEX SODIUM 250 MG TABLET(DEPAKOTE) PO SCH ×2 (11:08→20:13)
[2021-11-10] MEDS: AMIODARONE HCL 200 MG TABLET PO SCH (11:10)
[2021-11-10] MEDS: METOPROLOL TARTRATE 25 MG TABLET PO SCH ×2 (11:11→20:14)
[2021-11-10] MEDS: MULTIVITAMINS TAB 1 TABLET PO SCH (11:12)
[2021-11-10] MEDS: VORICONAZOLE 200 MG in NS 100 ML IV SCH ×2 (11:16→20:12)
[2021-11-10] MEDS: DEXMEDETOMIDINE HCL 400 MCG in NS 96 ML IV PRN (13:28)
[2021-11-10] MEDS: hydrALAZINE HCL 20 MG/ML VIAL IVP PRN (19:18)
[2021-11-10] MEDS: LATANOPROST 2.5 ML DROPS (XALATAN) OP SCH (20:13)
[2021-11-10] MEDS: QUEtiapine FUMARATE 100 MG TABLET PO SCH (20:32)
[2021-11-10] MEDS: INSULIN REGULAR, HUMAN 100 UNITS/ML, 10 ML VIAL (humuLIN R) SUBCUT PRN (21:08)
[2021-11-11] VITALS (18 sets, daily range): BP systolic 99–179
[2021-11-11] MEDS: LevALBUTEROL HCL 1.25 MG/0.5 ML *CONC.* VIAL.NEB (XOPENEX CONC.) INH SCH ×4 (00:22→19:44)
[2021-11-11] MEDS: PIPERACILLIN/TAZO 2.25G/DEX-IS 50 ML IV SCH ×2 (00:54→06:37)
[2021-11-11 06:36] LABS: BASOPHILS % (AUTO) 0.6 % (0.0-2.0); EOSINOPHILS % (AUTO) 0.2 % (0.0-4.0); HEMATOCRIT 29.4 % (36-48); HEMOGLOBIN 9.8 g/dL (12.0-16.0); LYMPHOCYTES # (AUTO) 1.1 K/uL (1.0-5.5); LYMPHOCYTES % (AUTO) 18.4 % (20.5-51.5); MEAN CORPUSCULAR HEMOGLOBIN 30 pg (27-31); MEAN CORPUSCULAR HGB CONC 34 % (32-36); MEAN CORPUSCULAR VOLUME 90 fL (79.0-98.0); MONOCYTES # (AUTO) 0.5 K/uL (0.0-1.0); MONOCYTES % (AUTO) 8.3 % (1.7-9.3); NEUTROPHILS # (AUTO) 4.5 K/uL (1.8-7.7); NEUTROPHILS % (AUTO) 72.5 % (40.0-70.0); PLATELET COUNT (AUTO) 185 K/uL (130-430); RED BLOOD CELL COUNT(AUTO) 3.25 MIL/uL (4.2-6.2); RED CELL DISTRIBUTION WIDTH 19.8 % (9.0-15.0); WHITE BLOOD COUNT (AUTO) 6.2 K/uL (4.8-10.8)
[2021-11-11] MEDS: DEXMEDETOMIDINE HCL 400 MCG in NS 96 ML IV PRN ×2 (06:39→14:46)
[2021-11-11] MEDS: PANTOPRAZOLE SODIUM 40 MG/VIAL (PROTONIX) IVP SCH (08:46)
[2021-11-11] MEDS: FUROSEMIDE 20 MG/2 ML VIAL IVP SCH (08:47)
[2021-11-11] MEDS: HYDROCORTISONE SOD SUCC 100 MG/2 ML VIAL IVP SCH ×2 (08:47→20:09)
[2021-11-11] MEDS: DIVALPROEX SODIUM 250 MG TABLET(DEPAKOTE) PO SCH ×2 (08:49→20:09)
[2021-11-11] MEDS: AMIODARONE HCL 200 MG TABLET PO SCH (08:49)
[2021-11-11] MEDS: METOPROLOL TARTRATE 25 MG TABLET PO SCH ×2 (08:49→20:08)
[2021-11-11] MEDS: MULTIVITAMINS TAB 1 TABLET PO SCH (08:49)
[2021-11-11] MEDS: LEVOTHYROXINE SODIUM 0.112 MG TABLET PO SCH (08:50)
[2021-11-11] MEDS: VORICONAZOLE 200 MG in NS 100 ML IV SCH (08:51)
[2021-11-11 09:33] LABS: ALBUMIN 1.8 g/dL (3.4-4.8); CALCIUM 8.5 mg/dL (8.4-11.0); CREATININE 2.08 mg/dL (0.55-1.30); POTASSIUM 3.4 mmol/L (3.5-5.1); TOTAL BILIRUBIN 0.1 mg/dL (0.0-1.0)
[2021-11-11] MEDS: HEPARIN SODIUM,PORCINE 5,000 UNITS/ML VIAL SUBCUT SCH ×2 (09:56→20:10)
[2021-11-11] MEDS ORDERED: KCL 20 mEq in 100 mL (PREMIX) 100 ML IV ONE (11:15)
[2021-11-11] MEDS: FUROSEMIDE 40 MG/4 ML VIAL IVP SCH (20:08)
[2021-11-11] MEDS: LATANOPROST 2.5 ML DROPS (XALATAN) OP SCH (20:09)
[2021-11-11] MEDS: QUEtiapine FUMARATE 100 MG TABLET PO SCH (20:09)
[2021-11-12] VITALS (20 sets, daily range): BP systolic 127–234
[2021-11-12 06:48] LABS: BASOPHILS % (AUTO) 0.8 % (0.0-2.0); EOSINOPHILS # (AUTO) 0.1 K/uL (0.0-0.4); HEMATOCRIT 28.8 % (36-48); HEMOGLOBIN 9.6 g/dL (12.0-16.0); LYMPHOCYTES % (AUTO) 16.7 % (20.5-51.5); MEAN CORPUSCULAR HEMOGLOBIN 30 pg (27-31); MEAN CORPUSCULAR HGB CONC 33 % (32-36); MEAN CORPUSCULAR VOLUME 91 fL (79.0-98.0); MONOCYTES # (AUTO) 0.5 K/uL (0.0-1.0); MONOCYTES % (AUTO) 8.5 % (1.7-9.3); NEUTROPHILS # (AUTO) 4.4 K/uL (1.8-7.7); PLATELET COUNT (AUTO) 204 K/uL (130-430); RED BLOOD CELL COUNT(AUTO) 3.17 MIL/uL (4.2-6.2); RED CELL DISTRIBUTION WIDTH 20.5 % (9.0-15.0)
[2021-11-12] MEDS: LevALBUTEROL HCL 1.25 MG/0.5 ML *CONC.* VIAL.NEB (XOPENEX CONC.) INH SCH ×3 (07:06→15:00)
[2021-11-12 07:16] LABS: ALBUMIN 1.9 g/dL (3.4-4.8); CALCIUM 8.4 mg/dL (8.4-11.0); CREATININE 2.09 mg/dL (0.55-1.30); TOTAL BILIRUBIN 0.2 mg/dL (0.0-1.0)
[2021-11-12] MEDS: LEVOTHYROXINE SODIUM 0.112 MG TABLET PO SCH (07:30)
[2021-11-12 08:44] LABS: POTASSIUM 2.9 mmol/L (3.5-5.1)
[2021-11-12] MEDS ORDERED: POTASSIUM CHLORIDE 20 MEQ TAB.PRT.SR NG ONE (09:30)
[2021-11-12] MEDS: METOPROLOL TARTRATE 25 MG TABLET PO SCH (09:47)
[2021-11-12] MEDS: MULTIVITAMINS TAB 1 TABLET PO SCH (09:47)
[2021-11-12] MEDS: DIVALPROEX SODIUM 250 MG TABLET(DEPAKOTE) PO SCH (09:47)
[2021-11-12] MEDS: AMIODARONE HCL 200 MG TABLET PO SCH (09:47)
[2021-11-12] MEDS: FUROSEMIDE 40 MG/4 ML VIAL IVP SCH (09:48)
[2021-11-12] MEDS: PANTOPRAZOLE SODIUM 40 MG/VIAL (PROTONIX) IVP SCH (09:55)
[2021-11-12] MEDS ORDERED: CALCIUM CHLORIDE 1 GM/10 ML DISP.SYRIN (14 mEq Ca++/SYR) ONE (09:55)
[2021-11-12] MEDS: HYDROCORTISONE SOD SUCC 100 MG/2 ML VIAL IVP SCH (09:55)
[2021-11-12] MEDS ORDERED: SODIUM BICARBONATE 8.4% JECT 50 MEQ/50 ML SYRINGE ONE (09:55)
[2021-11-12] MEDS ORDERED: EPINEPHrine JECT 0.1 MG/ML SYR ONE (09:55)
[2021-11-12] MEDS: HEPARIN SODIUM,PORCINE 5,000 UNITS/ML VIAL SUBCUT SCH (10:01)
[2021-11-12] MEDS ORDERED: CEFEPIME 2 GM in D5W 100 ML IV SCH (11:00)
[2021-11-12] MEDS ORDERED: DEXMEDETOMIDINE HCL 200 MCG in NS 48 ML IV SCH (11:45)
[2021-11-12] MEDS ORDERED: LABETALOL 100 MG/ 20ML VIAL IVP PRN (11:45)
[2021-11-12] MEDS: hydrALAZINE HCL 20 MG/ML VIAL IVP PRN (11:50)
[2021-11-12] MEDS ORDERED: LORazepam 2 MG/ML VIAL ONE (20:17)
[2021-11-12] MEDS ORDERED: ETOMIDATE 20 MG/ 10 ML VIAL (AMIDATE) IVP ONE (20:25)
[2021-11-12] MEDS ORDERED: SUCCINYLCHOLINE CHLORIDE 20 MG/ML(QUELICIN) IVP ONE (20:25)
== END 2021-11-12 20:26 | DRG 870 ==
LOC: SED 08:35 → STU 11:22 → SIC 10-18 14:24
PROVIDERS: ADMIT Family Medicine; ATTEND Family Medicine
PROC: 5A1D70Z Performance of Urinary Filtration, Intermittent, Less than 6 Hours Per Day (ICD-10-PCS; 2010-10-28)
PROC: 5A09357 Assistance with Respiratory Ventilation, Less than 24 Consecutive Hours, Continuous Positive Airway Pressure (ICD-10-PCS; 2021-10-18)
PROC: 0BH17EZ Insertion of Endotracheal Airway into Trachea, Via Natural or Artificial Opening (ICD-10-PCS; principal; 2021-10-19)
PROC: 5A1955Z Respiratory Ventilation, Greater than 96 Consecutive Hours (ICD-10-PCS; 2021-10-19)
PROC: 0B938ZZ Drainage of Right Main Bronchus, Via Natural or Artificial Opening Endoscopic (ICD-10-PCS; 2021-10-19)
PROC: 5A1D70Z Performance of Urinary Filtration, Intermittent, Less than 6 Hours Per Day (ICD-10-PCS; 2021-10-20)
PROC: 05HY33Z Insertion of Infusion Device into Upper Vein, Percutaneous Approach (ICD-10-PCS; 2021-10-20)
PROC: B54CZZA Ultrasonography of Left Lower Extremity Veins, Guidance (ICD-10-PCS; 2021-10-20)
PROC: 0W9B3ZZ Drainage of Left Pleural Cavity, Percutaneous Approach (ICD-10-PCS; 2021-10-20)
PROC: 5A1D70Z Performance of Urinary Filtration, Intermittent, Less than 6 Hours Per Day (ICD-10-PCS; 2021-10-21)
PROC: 5A1D70Z Performance of Urinary Filtration, Intermittent, Less than 6 Hours Per Day (ICD-10-PCS; 2021-10-23)
PROC: 5A1D70Z Performance of Urinary Filtration, Intermittent, Less than 6 Hours Per Day (ICD-10-PCS; 2021-10-26)
PROC: 0W9B3ZZ Drainage of Left Pleural Cavity, Percutaneous Approach (ICD-10-PCS; 2021-10-28)
PROC: 05HY33Z Insertion of Infusion Device into Upper Vein, Percutaneous Approach (ICD-10-PCS; 2021-11-02)
PROC: B54CZZA Ultrasonography of Left Lower Extremity Veins, Guidance (ICD-10-PCS; 2021-11-02)
PROC: 30233N1 Transfusion of Nonautologous Red Blood Cells into Peripheral Vein, Percutaneous Approach (ICD-10-PCS; 2021-11-02)
PROC: 5A1D70Z Performance of Urinary Filtration, Intermittent, Less than 6 Hours Per Day (ICD-10-PCS; 2021-11-03)
PROC: 5A1D70Z Performance of Urinary Filtration, Intermittent, Less than 6 Hours Per Day (ICD-10-PCS; 2021-11-05)
PROC: 0W9B3ZZ Drainage of Left Pleural Cavity, Percutaneous Approach (ICD-10-PCS; 2021-11-06)
PROC: 5A09357 Assistance with Respiratory Ventilation, Less than 24 Consecutive Hours, Continuous Positive Airway Pressure (ICD-10-PCS; 2021-11-08)
PROC: 5A0945A Assistance with Respiratory Ventilation, 24-96 Consecutive Hours, High Flow/Velocity Cannula (ICD-10-PCS; 2021-11-09)
PROC: 0W9B3ZZ Drainage of Left Pleural Cavity, Percutaneous Approach (ICD-10-PCS; 2021-11-10)
PROC: 5A09357 Assistance with Respiratory Ventilation, Less than 24 Consecutive Hours, Continuous Positive Airway Pressure (ICD-10-PCS; 2021-11-10)
DX: A41.9 Sepsis, unspecified organism (principal); E43 Unspecified severe protein-calorie malnutrition; J96.21 Acute and chronic respiratory failure with hypoxia; R65.21 Severe sepsis with septic shock; J69.0 Pneumonitis due to inhalation of food and vomit; N17.0 Acute kidney failure with tubular necrosis; J44.1 Chronic obstructive pulmonary disease with (acute) exacerbation; E87.1 Hypo-osmolality and hyponatremia; E87.2 Acidosis; G93.40 Encephalopathy, unspecified; I31.3 Pericardial effusion (noninflammatory); J44.0 Chronic obstructive pulmonary disease with (acute) lower respiratory infection; J90 Pleural effusion, not elsewhere classified; E86.0 Dehydration; Z20.822 Contact with and (suspected) exposure to COVID-19; D50.9 Iron deficiency anemia, unspecified; E03.9 Hypothyroidism, unspecified; E11.22 Type 2 diabetes mellitus with diabetic chronic kidney disease; E87.5 Hyperkalemia; F03.90 Unspecified dementia, unspecified severity, without behavioral disturbance, psychotic disturbance, mood disturbance, and anxiety; F25.9 Schizoaffective disorder, unspecified; F31.9 Bipolar disorder, unspecified; I13.10 Hypertensive heart and chronic kidney disease without heart failure, with stage 1 through stage 4 chronic kidney disease, or unspecified chronic kidney disease; N18.9 Chronic kidney disease, unspecified; I48.0 Paroxysmal atrial fibrillation; D69.6 Thrombocytopenia, unspecified; Z79.899 Other long term (current) drug therapy; Z87.891 Personal history of nicotine dependence; Z88.2 Allergy status to sulfonamides; Z88.5 Allergy status to narcotic agent; Z66 Do not resuscitate; I46.9 Cardiac arrest, cause unspecified
CPT/HCPCS: 32555; 36415; 36600; 71045; 71250-TC; 74018; 76376; 76604; 76700-TC; 80048; 80053; 80061; 80074; 80076; 80164; 80307; 81000; 82042; 82103; 82248; 82390; 82607; 82728; 82746; 82803-TC; 82947; 82962; 83516; 83540; 83550; 83605; 83690; 83735; 83880; 83986; 84100; 84157; 84439; 84443; 84484; 84703; 85007; 85025; 85027; 85610-TC; 85651-TC; 85730-TC; 86022; 86376; 86480; 86635; 86886; 86900; 86901; 86920; 87040; 87070-TC; 87081; 87116; 87205-TC; 88108; 88305; 88313; 88341; 88342; 89051-TC; 89060-TC; 90935; 90937; 93005; 93306; 93971; 94002; 94003; 94640; 94660; 94668; 94760; 96365; 99285; C9113; G0378; G0480; G0481; J0171; J0330; J0360; J0456; J0610; J0692; J1030; J1644; J1650; J1720; J1815; J1940; J1956; J2060; J2185; J2248; J2543; J2704; J2916; J2997; J3465; J3480; J3490; J7050; J7060; J7608; J7612; J7613; P9021; P9046